=== PATIENT | female | born 1950 | race Hispanic/Latino ===

== ENCOUNTER → 2019-12-04 | Day surgery (SDC) | payer MEDICARE, OTHER ==
[2019-12-02 14:42] LABS: BASOPHILS % 0.5 % (0.0-1.0); EOSINOPHILS # (AUTO) 0.1 (0.0-0.4); EOSINOPHILS % 1.8 % (0.0-6.0); HEMATOCRIT 30.1 % (34.2-44.1); HEMOGLOBIN 10.1 g/dL (12.0-16.0); LYMPHOCYTES # (AUTO) 1.3 (1.0-3.2); LYMPHOCYTES % 24.1 % (18.0-39.1); MEAN CORPUSCULAR HEMOGLOBIN 32.7 pg (28-32); MEAN CORPUSCULAR HGB CONC 33.6 g/dL (31-35); MEAN CORPUSCULAR VOLUME 97.4 fL (81-99); MONOCYTES # (AUTO) 0.6 (0.2-0.8); NEUTROPHILS # (AUTO) 3.4 (2.1-6.9); NEUTROPHILS % 62.1 % (38.7-80.0); PLATELET COUNT 176 x10e3/uL (140-360); RED BLOOD COUNT 3.09 x10e6/uL (3.6-5.1); RED CELL DISTRIBUTION WIDTH 18.4 % (11.7-14.4)
[~2019-12-04] MED LIST: ACTOS15 MG PO; AMLODIPINE BESYL5 MG PO; FENTANYL CITRATE/PF 100MCG/2 ML INJ ONE; FOLIC ACID PO; FUROSEMIDE40 MG PO; HYOSCYAMINE 0.125 MG TAB ONE; METHOTREXATE2.5 MG PO; MIDAZOLAM HCL 2 MG/2 ML VIAL ONE; NORCO 10-325 T1 EACH PO; OMEPRAZOLE40 MG PO; PROPOFOL IV EMULSION 10 MG/ML 20 ML VIAL ONE; PROPOFOL IV EMULSION 10 MG/ML 50 ML VIAL ONE; TRAZODONE HCL50 MG PO
--- OUTSIDE RECORDS SUMMARY | 2019-12-04 07:21 | XMS REPORT ---
Author Author [facility] Address Unknown Phone Unavailable Care Team Providers Care Dye Worker Name Role Phone Unavailable Unavailable Payers Payer Name Policy Type Policy Number Effective Date Expiration Date Problems This patient has no known problems. Allergies, Adverse Reactions, Alerts Allergy Name Allergy Type Status Severity Reaction(s) Onset Date Inactive Date Treating Clinician Comments Penicillins DA Active [place] 2018-12-25 00:00:00 Penicillins DA Active [place] 2018-12-17 00:00:00 PCN DA Active [place] 2014-05-12 00:00:00 Medications This patient has no known medications. Encounters Start Date/Time End Date/Time Encounter Type Admission Type Attending Clinicians Care Facility Care Department Encounter ID 2019-03-26 17:31:34 Outpatient [id number] Results Test Description Test Time Test Comments Text Results Atomic Results Result Comments - XR KNEE 1 OR 2 V LT 2018-12-26 11:01:00 Patient Name: SANJEEV JOYNER Unit No: [id number] EXAMS: CPT CODE: [id number] XR KNEE 1 OR 2 V 94242 AP AND LATERAL VIEW OF THE LEFT KNEE COMMENT: Patient is status post total left knee arthroplasty. The prosthesis appears to be in good position. at 1101 Reported and signed by: Alan Bergman MD CC: Ti Cuevas Jr, MD; Popeye Chou MD Technologist: JHON MCKEON (RT.R) Tr anscribed D/ (1101) [email or web address] [facility] NAME: SANJEEV JOYNER [address] PHYS: Popeye Godinez MD : 1950 AGE: 68 SEX: F [place], [place] [address] LOC: Y.501 A PHONE #: [phone] EXAM DATE: 12/25/2018 STATUS: ADM IN FAX #: [phone] RAD #: D/C DT PAGE 1 Signed Report Patient Name: SANJEEV JOYNER Unit No: [id number] EXAMS: CPT CODE: [id number] XR KNEE 1 OR 2 V LT [address] <Continued> Orig Print D/T: S: 12/26/2018 (1104) [facility] NAME: SANJEEV JOYNER [address] [facility] [address] PHYS: Popeye Godinez MD : 1950 AGE: 68 SEX: F [place], [place] [address] LOC: Y.501 A PHONE #: [phone] EXAM DATE: 12/25/2018 STATUS: ADM IN FAX #: [phone] RAD #: D/C DT PAGE 2 Signed Report BASIC METABOLIC PANEL 2018-12-26 06:35:00 SODIUM (test code=NA) 137 mmol/L 136-145 POTASSIUM (test code=K) 4.7 mmol/L 3.5-5.1 CHLORIDE (test code=CL) 103.0 mmol/L 98-107 CARBON DIOXIDE (test code=CO2) 23.6 mmol/L 21-32 GLUCOSE (test code=GLU) 131 mg/dL 70-110 BLOOD UREA NITROGEN (test code=BUN) 46 mg/dL 7-18 VERIFIED BY REPEAT ANALYSIS.CRITICAL VALUE CALLED TO SOFIA GUTIERREZ/SRAVAN MAHAJANREAD BACK & CONFIRMED? YBY Y.LAB.MAV 12/26/18 0635 GLOMERULAR FILTRATION RATE (test code=GFR) 31.1 >60 Unit of measure: mL/min/1.73 [id number] Range:Healthy Adults >90 mL/min/1.73 m2 For Chronic Kidney Disease: Stage II Mild Decrease in GFR 60-90 Stage III Moderate Decrease in GFR 30-59 Stage IV Severe Decrease in GFR 15-29 Stage V Kidney Failure <15 CREATININE (test code=CREAT) 1.65 mg/dL 0.55-1.30 CALCIUM (test code=CA) 8.1 mg/dL 8.2-10.1 HGB [id number] 05:41:00* Test Item Value Reference Range Comments HEMOGLOBIN (test code=HGB) 9.6 g/dL 12-16 HEMATOCRIT (test code=HCT) 29.4 % 37-47 [id number] 05:23:00* Test Item Value Reference Range Comments GLUBED (test code=GLUBED) 122 mg/dL 60-125 [id number] 20:46:00* Test Item Value Reference Range Comments GLUBED (test code=GLUBED) 188 mg/dL 60-125 [id number] 16:35:00* Test Item Value Reference Range Comments GLUBED (test code=GLUBED) 153 mg/dL 60-125 [id number] 11:13:00* Test Item Value Reference Range Comments GLUBED (test code=GLUBED) 96 mg/dL 60-125 COMPREHENSIVE METABOLIC [id number] 11:26:00* Test Item Value Reference Range Comments SODIUM (test code=NA) 142 mmol/L 136-145 POTASSIUM (test code=K) 3.8 mmol/L 3.5-5.1 CHLORIDE (test code=CL) 104.0 mmol/L 98-107 CARBON DIOXIDE (test code=CO2) 28.7 mmol/L 21-32 GLUCOSE (test code=GLU) 125 mg/dL 70-110 BLOOD UREA NITROGEN (test code=BUN) 32 mg/dL 7-18 GLOMERULAR FILTRATION RATE (test code=GFR) 36.2 >60 Unit of measure: mL/min/1.73 [id number] Range:Healthy Adults >90 mL/min/1.73 m2 For Chronic Kidney Disease: Stage II Mild Decrease in GFR 60-90 Stage III Moderate Decrease in GFR 30-59 Stage IV Severe Decrease in GFR 15-29 Stage V Kidney Failure <15 CREATININE (test code=CREAT) 1.45 mg/dL 0.55-1.30 TOTAL PROTEIN (test code=PROT) 6.8 g/dL 6.4-8.2 ALBUMIN (test code=ALB) 3.2 g/dL 3.4-5.0 GLOBULIN (test code=GLOB) 3.6 g/dL 2.2-4.2 ALBUMIN/GLOBULIN RATIO (test code=A/G) 0.9 0.7-2.0 CALCIUM (test code=CA) 9.1 mg/dL 8.2-10.1 BILIRUBIN TOTAL (test code=BILT) 0.57 mg/dL 0.2-1.00 SGOT/AST (test code=AST) 33.0 U/L 15-37 SGPT/ALT (test code=ALT) 28.0 U/L 12-78 Please note new normal range. ALKALINE PHOSPHATASE TOTAL (test code=ALKP) 106 U/L 46-116 CBC W/AUTO [id number] 10:55:00* Test Item Value Reference Range Comments WHITE BLOOD CELL (test code=WBC) 4.7 K/mm3 5.8-11.0 RED BLOOD CELL (test code=RBC) 3.62 M/mm3 4.2-5.4 HEMOGLOBIN (test code=HGB) 11.2 g/dL 12-16 HEMATOCRIT (test code=HCT) 33.6 % 37-47 MEAN CELL VOLUME (test code=MCV) 93 fL 80-98 MEAN CELL HGB (test code=MCH) 30.9 pg 27-34 MEAN CELL HGB CONCENTRATION (test code=MCHC) 33.3 g/dL 30.8-34.1 RED CELL DISTRIBUTION WIDTH (test code=RDW) 13.6 % 11-16 PLT (test code=PLT) 169 K/mm3 130-400 MEAN PLATELET VOLUME (test code=MPV) 12.1 fL 8.9-12.1 NEUTROPHIL % (test code=NT%) 60.9 % 45-70 LYMPHOCYTE % (test code=LY%) 30.6 % 20-40 MONOCYTE % (test code=MO%) 4.0 % 3-10 EOSINOPHIL % (test code=EO%) 3.2 % 1-5 BASOPHIL % (test code=BA%) 0.9 % 0.0-1.1 NEUTROPHIL # (test code=NT#) 2.86 K/mm3 2.00-7.50 LYMPHOCYTE # (test code=LY#) 1.44 K/mm3 1.50-4.00 MONOCYTE # (test code=MO#) 0.19 K/mm3 0.2-0.8 EOSINOPHIL # (test code=EO#) 0.15 K/mm3 0.04-0.4 BASOPHIL # (test code=BA#) 0.04 K/mm3 0.02-0.10 MANUAL DIFF REQUIRED (test code=MDIFF) NO MANUAL DIFF NUCLEATED RED BLOOD CELL (test code=NRBC) 0 % 0-0
[2019-12-04 11:00] VITALS: BP 136/80
[2019-12-04 11:56] LABS: % IRON SATURATION 15 % (15-50); IRON 56 ug/dL (50-170); TOTAL IRON BINDING CAPACITY 381 ug/dL (261-478); TRANSFERRIN 272 mg/dL (180-382)
--- NOTE | 2019-12-04 19:29 | Operative Report ---
DATE OF PROCEDURE: 12/04/2019 SURGEON: Michael Hilton MD PROCEDURE: EGD with polypectomy and biopsies and colonoscopy with polypectomy. INDICATIONS FOR EGD: Upper abdominal pain. INDICATIONS FOR COLONOSCOPY: Surveillance colonoscopy, personal history of colon polyps. MEDICATIONS: The patient was done under MAC, please see anesthesiologist's note. PROCEDURE IN DETAIL: With the patient in left lateral decubitus position, the flexible fiberoptic Olympus gastroscope was introduced into the esophagus under direct visualization without any difficulty. There was some patchy erythema noted in distal esophagus. The scope was then advanced with ease into the stomach. Mucosa overlying the antrum and the body revealed some patchy erythema and [id number] edema and biopsies were obtained and sent to stain for H pylori. A single polyp was noted in the body of the stomach that was partially excised with the cold biopsy forceps. The pylorus was of normal contour and shape, was intubated with ease and the scope was advanced all the way to the second portion of the duodenum. The scope was then withdrawn slowly and biopsies were obtained from the proximal second portion and the duodenal bulb to rule out sprue. The scope was then withdrawn back into the stomach and retroflexed. Mucosa overlying the fundus and cardia appeared to be within normal limits. The scope was then straightened out, it was subsequently withdrawn. The patient tolerated procedure well. IMPRESSION: 1. Distal esophagitis. 2. Gastritis, biopsied. Biopsies sent to stain for H pylori. 3. Gastric polyp, body partially excised with the cold biopsy forceps. 4. Rule out sprue. PLAN: Follow up histology. Increase omeprazole to 40 mg one p.o. before meals b.i.d. The patient was then turned around. After adequate lubrication of the anal canal, a flexible fiberoptic Olympus colonoscope was inserted into the rectum with ease and advanced all the way to the cecum. It was then withdrawn slowly. Mucosa overlying the cecum, ascending colon, transverse colon, and descending colon appeared to be within normal limits. One polyp was snared from the sigmoid colon. Some diverticular disease was noted in the sigmoid colon. The rectum appeared to be within normal limits. The scope was then retroflexed into the distal rectum and small internal hemorrhoids were noted, none of which was actively bleeding. The scope was then straightened out, it was subsequently withdrawn. The patient tolerated the procedure well. IMPRESSION: 1. Sigmoid colon polyp, snared. 2. Diverticulosis. 3. Internal hemorrhoids, none actively bleeding. PLAN: Follow up histology. Initiate high-fiber, low-fat diet. Initiate high-fiber supplement. The patient might benefit from a followup colonoscopy in 5 years. MD ANGELICA James/MODL /[id number] cc: Vinod Cummings DO
== END | disposition home or self-care (01) ==
LOC: OR 07:14
PROVIDERS: ATTEND Internal Medicine Gastroenterology
DX: K29.80 Duodenitis without bleeding (principal); K31.7 Polyp of stomach and duodenum; K20.9 Esophagitis, unspecified; K29.50 Unspecified chronic gastritis without bleeding; D12.5 Benign neoplasm of sigmoid colon; K57.30 Diverticulosis of large intestine without perforation or abscess without bleeding; K64.8 Other hemorrhoids; Z09 Encounter for follow-up examination after completed treatment for conditions other than malignant neoplasm; I10 Essential (primary) hypertension; E11.9 Type 2 diabetes mellitus without complications; Z79.84 Long term (current) use of oral hypoglycemic drugs; Z01.812 Encounter for preprocedural laboratory examination
CPT/HCPCS: 36415 ×2; 43239; 45385; 82607; 82746; 82948; 83540; 84466; 85025; 85045; 88305; 88312; 93005; J2250; J2704 ×2; J3010; 45378

== ENCOUNTER 2021-06-28 08:31 | Emergency (ER) | payer MEDICARE, OTHER ==
[~2021-06-28] VITALS: Ht 149.9 cm; Wt 113.9 kg
[~2021-06-28 08:31] MED LIST changes: -FENTANYL CITRATE/PF 100MCG/2 ML INJ ONE; -HYOSCYAMINE 0.125 MG TAB ONE; -MIDAZOLAM HCL 2 MG/2 ML VIAL ONE; -PROPOFOL IV EMULSION 10 MG/ML 20 ML VIAL ONE; -PROPOFOL IV EMULSION 10 MG/ML 50 ML VIAL ONE
[2021-06-28] MEDS ORDERED: ONDANSETRON HCL INJ 2MG/ML 2ML 2 MG/ML VIAL IV STA (08:59)
[2021-06-28] MEDS ORDERED: SODIUM CHLORIDE 0.9% 1000ML 1,000 ML IV STA (09:04)
[2021-06-28] MEDS ORDERED: ONDANSETRON HCL INJ 2MG/ML 2ML 2 MG/ML VIAL ONE (09:05)
[2021-06-28] MEDS ORDERED: ONDANSETRON ODT4 MG PO (09:11)
[2021-06-28] MEDS ORDERED: FAMOTIDINE20 MG PO (09:11)
[2021-06-28] MEDS ORDERED: FAMOTIDINE 20 MG/2 ML VIAL IV ONE (09:15)
[2021-06-28] MEDS ORDERED: ONDANSETRON HCL INJ 2MG/ML 2ML 2 MG/ML VIAL IV ONE (09:15)
[2021-06-28] MEDS ORDERED: CEFTRIAXONE 1 GM VIAL IV ONE (10:30)
[2021-06-28] MEDS ORDERED: PROBIOTIC & AC1 EACH PO (10:30)
[2021-06-28] MEDS ORDERED: CEFDINIR300 MG PO (10:30)
[2021-06-28] MEDS ORDERED: CEFTRIAXONE 1 GM in SODIUM CHLORIDE 0.9% 50ML 50 ML IV ONE (10:45)
[2021-06-28] MEDS ORDERED: SODIUM CHLORIDE 0.9% 50ML 50 ML ONE (11:00)
[2021-06-28] MEDS ORDERED: CEFTRIAXONE 1 GM VIAL ONE (11:01)
== END 2021-06-28 12:00 | disposition home or self-care (01) ==
LOC: FSED 09:04
DX: R50.9 Fever, unspecified (principal); R11.2 Nausea with vomiting, unspecified; K52.9 Noninfective gastroenteritis and colitis, unspecified; N30.90 Cystitis, unspecified without hematuria; K76.0 Fatty (change of) liver, not elsewhere classified; I10 Essential (primary) hypertension; M06.9 Rheumatoid arthritis, unspecified
CPT/HCPCS: 74018; 80048; 80076; 85025; 96374; 96375; 96376; 99284; J0696; J2405; J7030

== ENCOUNTER 2021-06-30 18:38 | Inpatient (IN) | payer MEDICARE, OTHER ==
[~2021-06-30] VITALS: Ht 302.3 cm; Wt 126.1 kg
[~2021-06-30 18:38] MED LIST changes: +CEFDINIR300 MG PO; +FAMOTIDINE20 MG PO; +ONDANSETRON ODT4 MG PO; +PROBIOTIC & AC1 EACH PO
[2021-06-30] MEDS ORDERED: SODIUM CHLORIDE 0.9% 1000ML 1,000 ML IV STA (19:42)
[2021-06-30] MEDS ORDERED: ONDANSETRON HCL INJ 2MG/ML 2ML 2 MG/ML VIAL IV STA (19:42)
[2021-06-30] MEDS ORDERED: ONDANSETRON HCL INJ 2MG/ML 2ML 2 MG/ML VIAL ONE (20:23)
[2021-06-30] MEDS ORDERED: SODIUM CHLORIDE 0.9% 1000ML 1,000 ML ONE (20:24)
[2021-06-30] MEDS ORDERED: PHENERGAN SUPP25 MG RC (22:02)
[2021-06-30] MEDS ORDERED: DICYCLOMINE HCL20 MG PO (22:02)
[2021-06-30] MEDS ORDERED: ONDANSETRON HCL INJ 2MG/ML 2ML 2 MG/ML VIAL IV PRN (23:00)
[2021-06-30] MEDS ORDERED: SODIUM CHLORIDE 0.9% 1000ML 1,000 ML IV SCH (23:00)
[2021-07-01] VITALS (8 sets, daily range): BP systolic 85–118; BP diastolic 50–98
[2021-07-01] MEDS ORDERED: DEXTROSE 50% SYRINGE 50 ML IV PRN ×2 (04:00→08:30)
[2021-07-01] MEDS ORDERED: ATENOLOL-CHLOR1 EACH PO (04:48)
[2021-07-01 07:07] LABS: BASOPHILS % 0.4 % (0.0-1.0); EOSINOPHILS # (AUTO) 0.1 (0.0-0.4); EOSINOPHILS % 2.4 % (0.0-6.0); HEMATOCRIT 24.5 % (34.2-44.1); HEMOGLOBIN 8.2 g/dL (12.0-16.0); LYMPHOCYTES # (AUTO) 0.6 (1.0-3.2); LYMPHOCYTES % 12.1 % (18.0-39.1); MEAN CORPUSCULAR HEMOGLOBIN 33.3 pg (28-32); MEAN CORPUSCULAR HGB CONC 33.5 g/dL (31-35); MEAN CORPUSCULAR VOLUME 99.6 fL (81-99); MONOCYTES # (AUTO) 0.1 (0.2-0.8); MONOCYTES % 2.8 % (4.4-11.3); NEUTROPHILS # (AUTO) 4.1 (2.1-6.9); NEUTROPHILS % 81.9 % (38.7-80.0); PLATELET COUNT 144 x10e3/uL (140-360); RED BLOOD COUNT 2.46 x10e6/uL (3.6-5.1); RED CELL DISTRIBUTION WIDTH 15.8 % (11.7-14.4)
[2021-07-01 07:27] LABS: ALBUMIN/GLOBULIN RATIO 0.6 (0.8-2.0); CALCIUM 7.1 mg/dL (8.4-10.2); CREATININE, SERUM 3.22 mg/dL (0.57-1.11)
[2021-07-01] MEDS: INSULIN LISPRO 100 UNIT/1 ML 3ML VIAL SQ SCH ×4 (07:30→20:50)
[2021-07-01] MEDS ORDERED: ALBUTEROL/IPRATROPIUM 3 ML NEB NEB PRN (08:30)
[2021-07-01] MEDS ORDERED: SIMETHICONE 80 MG CHEW PO PRN (08:30)
[2021-07-01] MEDS ORDERED: POTASSIUM CHLORIDE 20 MEQ TAB CR PO PRN (08:30)
[2021-07-01] MEDS ORDERED: LIDOCAINE 4% PATCH TP PRN (08:30)
[2021-07-01] MEDS ORDERED: DOCUSATE SODIUM 100 MG CAP PO PRN (08:30)
[2021-07-01] MEDS ORDERED: ONDANSETRON HCL INJ 2MG/ML 2ML 2 MG/ML VIAL IV PRN (08:30)
[2021-07-01] MEDS ORDERED: DIPHENHYDRAMINE HCL 25 MG CAP PO PRN (08:30)
[2021-07-01] MEDS ORDERED: HYDRALAZINE HCL 20 MG/ML VIAL IV PRN (08:30)
[2021-07-01] MEDS ORDERED: POTASSIUM CHLORIDE 10MEQ EA PO SCH ×2 (09:00)
[2021-07-01] MEDS ORDERED: POTASSIUM CHLORIDE 20 MEQ TAB CR PO ONE (09:10)
[2021-07-01] MEDS ORDERED: SODIUM CHLORIDE 0.9% 500ML 500 ML IV SCH (09:15)
[2021-07-01] MEDS: MIDODRINE HCL 5 MG TABLET PO SCH ×3 (10:23→16:49)
[2021-07-01] MEDS: PANTOPRAZOLE SOD 40 MG TABEC PO SCH (10:27)
[2021-07-01] MEDS ORDERED: MIDODRINE 2.5 MG TAB PO SCH (12:00)
[2021-07-01] MEDS: HYDROCODONE/APAP 5MG-325MG TAB PO PRN ×2 (12:27→18:18)
[2021-07-01] MEDS ORDERED: SODIUM CHLORIDE 0.9% 1000ML 1,000 ML ONE (12:29)
[2021-07-01] MEDS: METRONIDAZOLE 500MG/NS 100ML 100 ML IV SCH ×2 (13:39→22:32)
[2021-07-01] MEDS: METOCLOPRAMIDE HCL 10 MG/2ML VIAL IV SCH ×2 (13:39→16:49)
[2021-07-01] MEDS ORDERED: LIDOCAINE HCL 1% LOCAL INJ 20 ML VIAL ONE (13:40)
[2021-07-01] MEDS ORDERED: SODIUM CHLORIDE 3% 200 ML IV ONE (16:00)
[2021-07-01] MEDS: SODIUM CHLORIDE 1 GM TAB PO SCH ×2 (16:49→20:51)
[2021-07-01] MEDS ORDERED: CHLORASEPTIC SPRAY 177 ML BTL MM PRN (19:15)
[2021-07-01] MEDS ORDERED: SODIUM CHLORIDE 3% 150 ML IV ONE (20:30)
[2021-07-02] VITALS (13 sets, daily range): BP systolic 73–137; BP diastolic 42–79
[2021-07-02] MEDS: METOCLOPRAMIDE HCL 10 MG/2ML VIAL IV SCH ×4 (00:34→17:13)
[2021-07-02] MEDS: METRONIDAZOLE 500MG/NS 100ML 100 ML IV SCH ×3 (05:37→22:16)
[2021-07-02 06:42] LABS: ANION GAP 12.6 mmol/L (8-16); CREATININE, SERUM 3.72 mg/dL (0.57-1.11); MAGNESIUM 1.4 MG/DL (1.3-2.1); PHOSPHORUS 4.2 MG/DL (2.3-4.7); POTASSIUM 3.6 mmol/L (3.5-5.1)
[2021-07-02 06:44] LABS: CALCIUM 6.7 mg/dL (8.4-10.2)
[2021-07-02 06:55] LABS: BASOPHILS % 0.3 % (0.0-1.0); EOSINOPHILS % 0.3 % (0.0-6.0); LYMPHOCYTES # (AUTO) 0.7 (1.0-3.2); LYMPHOCYTES % 6.9 % (18.0-39.1); MEAN CORPUSCULAR HEMOGLOBIN 33.9 pg (28-32); MEAN CORPUSCULAR HGB CONC 34.5 g/dL (31-35); MEAN CORPUSCULAR VOLUME 98.2 fL (81-99); MONOCYTES # (AUTO) 0.3 (0.2-0.8); MONOCYTES % 3.4 % (4.4-11.3); NEUTROPHILS # (AUTO) 8.3 (2.1-6.9); NEUTROPHILS % 87.7 % (38.7-80.0); RED BLOOD COUNT 2.24 x10e6/uL (3.6-5.1); RED CELL DISTRIBUTION WIDTH 15.6 % (11.7-14.4)
[2021-07-02 06:59] LABS: HEMOGLOBIN 7.6 g/dL (12.0-16.0); PLATELET COUNT 109 x10e3/uL (140-360)
[2021-07-02] MEDS: INSULIN LISPRO 100 UNIT/1 ML 3ML VIAL SQ SCH ×4 (07:30→21:00)
[2021-07-02 07:43] LABS: LYMPHOCYTES % (MANUAL) 2 % (19-48); MONOCYTES % (MANUAL) 1 % (3.4-9.0); NEUTROPHILS % (MANUAL) 97 % (40-74)
[2021-07-02 07:44] LABS: PLATELET ESTIMATE SLIGHTLY DECREASED; PLATELET MORPHOLOGY COMMENT NORMAL; RBC MORPHOLOGY COMMENT NORMAL
[2021-07-02] MEDS: SODIUM CHLORIDE 1 GM TAB PO SCH ×3 (08:37→21:03)
[2021-07-02] MEDS: MIDODRINE HCL 5 MG TABLET PO SCH ×4 (08:37→17:13)
[2021-07-02] MEDS: PANTOPRAZOLE SOD 40 MG TABEC PO SCH (08:37)
[2021-07-02] MEDS: ACETAMINOPHEN 325 MG TAB PO PRN (08:38)
[2021-07-02] MEDS ORDERED: ALBUMIN 25% 25GM 100ML 0.25 GM/ML BTL IV ONE (11:28)
[2021-07-02] MEDS ORDERED: CALCIUM GLUCONATE 10% INJ 4.65 MEQ in SODIUM CHLORIDE 0.9% 50ML 50 ML IV ONE ×2 (15:47→17:30)
[2021-07-02] MEDS ORDERED: SODIUM CHLORIDE 0.9% 1000ML 1,000 ML IV ONE (16:45)
[2021-07-02] MEDS ORDERED: MAGNESIUM SULFATE 2GM/50ML 50 ML IV ONE (16:45)
[2021-07-02] MEDS ORDERED: FUROSEMIDE INJ 10 MG/ML 2 ML VIAL IV ONE (16:45)
[2021-07-02] MEDS: CALCIUM CARBONATE 500 MG CHEWABLE TABS PO SCH (21:03)
[2021-07-02] MEDS ORDERED: FUROSEMIDE INJ 10 MG/ML 2 ML VIAL ONE (22:09)
[2021-07-03] VITALS (11 sets, daily range): BP systolic 78–121; BP diastolic 43–84
[2021-07-03] MEDS: METOCLOPRAMIDE HCL 10 MG/2ML VIAL IV SCH ×4 (00:16→17:25)
[2021-07-03] MEDS: MIDODRINE HCL 5 MG TABLET PO SCH ×4 (00:16→17:25)
[2021-07-03] MEDS ORDERED: METOCLOPRAMIDE HCL 10 MG/2ML VIAL IV STA (02:49)
[2021-07-03 05:55] LABS: BASOPHILS # (AUTO) 0.1 (0.0-0.1); BASOPHILS % 0.5 % (0.0-1.0); EOSINOPHILS # (AUTO) 0.1 (0.0-0.4); EOSINOPHILS % 0.8 % (0.0-6.0); HEMOGLOBIN 7.1 g/dL (12.0-16.0); LYMPHOCYTES # (AUTO) 0.7 (1.0-3.2); LYMPHOCYTES % 7.2 % (18.0-39.1); MEAN CORPUSCULAR HEMOGLOBIN 34.1 pg (28-32); MEAN CORPUSCULAR VOLUME 97.6 fL (81-99); MONOCYTES # (AUTO) 0.2 (0.2-0.8); MONOCYTES % 2.2 % (4.4-11.3); NEUTROPHILS # (AUTO) 8.7 (2.1-6.9); NEUTROPHILS % 87.7 % (38.7-80.0); PLATELET COUNT 80 x10e3/uL (140-360); RED BLOOD COUNT 2.08 x10e6/uL (3.6-5.1); RED CELL DISTRIBUTION WIDTH 15.9 % (11.7-14.4)
[2021-07-03] MEDS: METRONIDAZOLE 500MG/NS 100ML 100 ML IV SCH ×3 (06:00→21:42)
[2021-07-03 06:09] LABS: HEMATOCRIT 20.3 % (34.2-44.1)
[2021-07-03 06:18] LABS: ANION GAP 13.7 mmol/L (8-16); CALCIUM 7.3 mg/dL (8.4-10.2); CREATININE, SERUM 3.82 mg/dL (0.57-1.11); POTASSIUM 3.7 mmol/L (3.5-5.1)
[2021-07-03 06:33] LABS: % IRON SATURATION 92 % (15-50); IRON 149 ug/dL (50-170); TOTAL IRON BINDING CAPACITY 162 ug/dL (261-478); TRANSFERRIN 116 mg/dL (180-382)
[2021-07-03] MEDS: INSULIN LISPRO 100 UNIT/1 ML 3ML VIAL SQ SCH ×4 (07:30→21:43)
[2021-07-03 08:52] LABS: EOSINOPHILS % (MANUAL) 2 % (0-7); LYMPHOCYTES % (MANUAL) 6 % (19-48); MONOCYTES % (MANUAL) 1 % (3.4-9.0); NEUTROPHILS % (MANUAL) 91 % (40-74)
[2021-07-03 08:54] LABS: PLATELET MORPHOLOGY COMMENT NORMAL
[2021-07-03 08:55] LABS: ANISOCYTOSIS SLIGHT; PLATELET ESTIMATE MODERATELY DECREASED; RBC MORPHOLOGY COMMENT ABNORMAL
[2021-07-03 08:56] LABS: HYPOCHROMASIA MODERATE
[2021-07-03] MEDS: SODIUM CHLORIDE 1 GM TAB PO SCH ×3 (09:25→21:42)
[2021-07-03] MEDS: CALCIUM CARBONATE 500 MG CHEWABLE TABS PO SCH ×3 (09:25→21:42)
[2021-07-03 09:27] LABS: CLARITY,URINE CLEAR (CLEAR); COLOR,URINE YELLOW (YELLOW); KETONES,URINE NEGATIVE (NEGATIVE); LEUKOCYTE ESTERASE ,URINE MODERATE (NEGATIVE); NITRITE,URINE NEGATIVE (NEGATIVE); PROTEIN,URINE DIPSTICK NEGATIVE (NEGATIVE); URINE UROBILINOGEN 0.2 mg/dL (0.2 - 1)
[2021-07-03 09:48] LABS: BACTERIA,URINE FEW /HPF; TRANSITIONAL EPI CELLS,URINE MODERATE; WBC,URINE (MAN) 21-50 /HPF (0-5)
[2021-07-03 09:50] LABS: EPITHELIAL CELLS,URINE FEW /LPF
[2021-07-03 09:51] LABS: YEAST,URINE RARE
[2021-07-03 09:52] LABS: RBC,URINE 0-5 /HPF (0-5)
[2021-07-03] MEDS: HYDROCODONE/APAP 5MG-325MG TAB PO PRN (10:50)
[2021-07-03 14:39] LABS: ANION GAP 12.6 mmol/L (8-16); CALCIUM 7.4 mg/dL (8.4-10.2); CREATININE, SERUM 3.99 mg/dL (0.57-1.11); POTASSIUM 3.6 mmol/L (3.5-5.1)
[2021-07-03] MEDS: NOREPINEPHRINE 8 MG/D5W 250 ML 250 ML IV SCH (15:00)
[2021-07-03] MEDS ORDERED: TOLVAPTAN 30 MG TAB PO ONE (16:00)
[2021-07-03] MEDS ORDERED: SODIUM CHLORIDE 0.9% 250ML 250 ML ONE (18:37)
[2021-07-03] MEDS: SODIUM CHLORIDE 0.9% 250ML 250 ML IV ONE ×2 (18:40→18:48)
[2021-07-03] MEDS: FUROSEMIDE INJ 10 MG/ML 4 ML VIAL IV ONE ×2 (18:48→21:42)
[2021-07-03] MEDS ORDERED: FUROSEMIDE INJ 10 MG/ML 4 ML VIAL ONE (21:51)
[2021-07-03 23:06] LABS: ANION GAP 13.6 mmol/L (8-16); CALCIUM 7.7 mg/dL (8.4-10.2); CREATININE, SERUM 4.08 mg/dL (0.57-1.11); POTASSIUM 3.6 mmol/L (3.5-5.1)
[2021-07-04] VITALS (24 sets, daily range): BP systolic 77–132; BP diastolic 47–92
[2021-07-04] MEDS: METOCLOPRAMIDE HCL 10 MG/2ML VIAL IV SCH ×4 (00:56→18:15)
[2021-07-04] MEDS: METRONIDAZOLE 500MG/NS 100ML 100 ML IV SCH ×3 (05:47→21:12)
[2021-07-04] MEDS: MIDODRINE HCL 5 MG TABLET PO SCH ×4 (06:00→18:00)
[2021-07-04 06:40] LABS: BASOPHILS % 0.4 % (0.0-1.0); EOSINOPHILS # (AUTO) 0.1 (0.0-0.4); EOSINOPHILS % 1.5 % (0.0-6.0); HEMOGLOBIN 8.1 g/dL (12.0-16.0); LYMPHOCYTES # (AUTO) 0.7 (1.0-3.2); LYMPHOCYTES % 9.8 % (18.0-39.1); MEAN CORPUSCULAR HEMOGLOBIN 34.2 pg (28-32); MEAN CORPUSCULAR VOLUME 94.9 fL (81-99); MONOCYTES # (AUTO) 0.3 (0.2-0.8); MONOCYTES % 4.4 % (4.4-11.3); NEUTROPHILS # (AUTO) 6.3 (2.1-6.9); NEUTROPHILS % 82.8 % (38.7-80.0); RED BLOOD COUNT 2.37 x10e6/uL (3.6-5.1); RED CELL DISTRIBUTION WIDTH 16.3 % (11.7-14.4)
[2021-07-04 06:57] LABS: ANION GAP 13.5 mmol/L (8-16); CALCIUM 7.5 mg/dL (8.4-10.2); CREATININE, SERUM 3.99 mg/dL (0.57-1.11); POTASSIUM 3.5 mmol/L (3.5-5.1)
[2021-07-04 07:09] LABS: MAGNESIUM 1.8 MG/DL (1.3-2.1); PHOSPHORUS 5.1 MG/DL (2.3-4.7)
[2021-07-04 07:19] LABS: HEMATOCRIT 22.5 % (34.2-44.1); PLATELET COUNT 56 x10e3/uL (140-360)
[2021-07-04] MEDS: INSULIN LISPRO 100 UNIT/1 ML 3ML VIAL SQ SCH ×4 (07:30→21:25)
[2021-07-04] MEDS: CALCIUM CARBONATE 500 MG CHEWABLE TABS PO SCH ×3 (09:58→21:11)
[2021-07-04] MEDS: SODIUM CHLORIDE 1 GM TAB PO SCH ×3 (09:58→21:11)
[2021-07-04] MEDS ORDERED: FUROSEMIDE INJ 10 MG/ML 4 ML VIAL IV ONE (11:00)
[2021-07-04 12:10] LABS: EOSINOPHILS % (MANUAL) 1 % (0-7); HYPERSEGMENTED NEUTROPHILS FEW; LYMPHOCYTES % (MANUAL) 9 % (19-48); MONOCYTES % (MANUAL) 4 % (3.4-9.0); NEUTROPHILS % (MANUAL) 85 % (40-74)
[2021-07-04 12:12] LABS: PLATELET ESTIMATE MODERATELY DECREASED; PLATELET MORPHOLOGY COMMENT NORMAL
[2021-07-04 12:13] LABS: ANISOCYTOSIS SLIGHT; RBC MORPHOLOGY COMMENT NORMAL
[2021-07-04] MEDS: NOREPINEPHRINE 8 MG/D5W 250 ML 250 ML IV SCH (15:00)
[2021-07-05] VITALS (23 sets, daily range): BP systolic 95–131; BP diastolic 53–78
[2021-07-05] MEDS: METOCLOPRAMIDE HCL 10 MG/2ML VIAL IV SCH ×5 (00:50→23:34)
[2021-07-05] MEDS: MIDODRINE HCL 5 MG TABLET PO SCH ×2 (00:50→08:10)
[2021-07-05] MEDS: ACETAMINOPHEN 325 MG TAB PO PRN (01:01)
[2021-07-05 03:07] LABS: CLARITY,URINE CLOUDY (CLEAR); COLOR,URINE YELLOW (YELLOW); LEUKOCYTE ESTERASE ,URINE TRACE (NEGATIVE)
[2021-07-05 03:08] LABS: BACTERIA,URINE MODERATE /HPF; EPITHELIAL CELLS,URINE FEW /LPF; KETONES,URINE NEGATIVE (NEGATIVE); NITRITE,URINE NEGATIVE (NEGATIVE); PROTEIN,URINE DIPSTICK NEGATIVE (NEGATIVE); RBC,URINE >50 /HPF (0-5); URINE UROBILINOGEN 0.2 mg/dL (0.2 - 1); YEAST,URINE MODERATE
[2021-07-05 05:23] LABS: BASOPHILS % 0.5 % (0.0-1.0); EOSINOPHILS # (AUTO) 0.1 (0.0-0.4); EOSINOPHILS % 2.1 % (0.0-6.0); HEMOGLOBIN 7.5 g/dL (12.0-16.0); MEAN CORPUSCULAR HEMOGLOBIN 33.2 pg (28-32); MEAN CORPUSCULAR HGB CONC 35.7 g/dL (31-35); MEAN CORPUSCULAR VOLUME 92.9 fL (81-99); MONOCYTES # (AUTO) 0.3 (0.2-0.8); MONOCYTES % 4.1 % (4.4-11.3); NEUTROPHILS # (AUTO) 4.8 (2.1-6.9); NEUTROPHILS % 76.4 % (38.7-80.0); RED BLOOD COUNT 2.26 x10e6/uL (3.6-5.1); RED CELL DISTRIBUTION WIDTH 16.1 % (11.7-14.4)
[2021-07-05 05:45] LABS: ANION GAP 13.3 mmol/L (8-16); CALCIUM 7.8 mg/dL (8.4-10.2); CREATININE, SERUM 3.73 mg/dL (0.57-1.11); POTASSIUM 3.3 mmol/L (3.5-5.1)
[2021-07-05 06:09] LABS: % IRON SATURATION 96 % (15-50); IRON 138 ug/dL (50-170); TOTAL IRON BINDING CAPACITY 144 ug/dL (261-478); TRANSFERRIN 103 mg/dL (180-382)
[2021-07-05 06:50] LABS: PLATELET COUNT 41 x10e3/uL (140-360)
[2021-07-05] MEDS: METRONIDAZOLE 500MG/NS 100ML 100 ML IV SCH ×3 (06:51→22:21)
[2021-07-05] MEDS: SODIUM CHLORIDE 1 GM TAB PO SCH ×3 (08:11→20:35)
[2021-07-05] MEDS: CALCIUM CARBONATE 500 MG CHEWABLE TABS PO SCH ×3 (08:11→20:35)
[2021-07-05] MEDS: INSULIN LISPRO 100 UNIT/1 ML 3ML VIAL SQ SCH ×4 (08:11→20:36)
[2021-07-05 08:39] LABS: EOSINOPHILS % (MANUAL) 3 % (0-7); LYMPHOCYTES % (MANUAL) 11 % (19-48); MONOCYTES % (MANUAL) 4 % (3.4-9.0); NEUTROPHILS % (MANUAL) 82 % (40-74); PLATELET ESTIMATE MARKEDLY DECREASED; PLATELET MORPHOLOGY COMMENT FEW LARGE; RBC MORPHOLOGY COMMENT NORMAL
[2021-07-05] MEDS ORDERED: POTASSIUM CHLORIDE 20 MEQ TAB CR PO STA (12:07)
[2021-07-05 13:03] LABS: INR 1.57; PROTHROMBIN TIME 19.1 seconds (11.9-14.5)
[2021-07-05 13:04] LABS: PARTIAL THROMBOPLASTIN TIME 48.3 seconds (23.8-35.5)
[2021-07-05] MEDS: NOREPINEPHRINE 8 MG/D5W 250 ML 250 ML IV SCH (15:00)
[2021-07-06] VITALS (16 sets, daily range): BP systolic 102–136; BP diastolic 50–86
[2021-07-06] MEDS: METOCLOPRAMIDE HCL 10 MG/2ML VIAL IV SCH ×3 (05:33→17:10)
[2021-07-06] MEDS: METRONIDAZOLE 500MG/NS 100ML 100 ML IV SCH ×3 (05:33→22:14)
[2021-07-06 06:30] LABS: ANION GAP 11.3 mmol/L (8-16); CALCIUM 7.9 mg/dL (8.4-10.2); CREATININE, SERUM 3.17 mg/dL (0.57-1.11); POTASSIUM 3.3 mmol/L (3.5-5.1)
[2021-07-06 07:18] LABS: BASOPHILS % 0.4 % (0.0-1.0); EOSINOPHILS # (AUTO) 0.1 (0.0-0.4); EOSINOPHILS % 2.5 % (0.0-6.0); HEMOGLOBIN 7.4 g/dL (12.0-16.0); LYMPHOCYTES # (AUTO) 1.1 (1.0-3.2); LYMPHOCYTES % 22.1 % (18.0-39.1); MEAN CORPUSCULAR HEMOGLOBIN 33.6 pg (28-32); MEAN CORPUSCULAR HGB CONC 34.9 g/dL (31-35); MEAN CORPUSCULAR VOLUME 96.4 fL (81-99); MONOCYTES # (AUTO) 0.3 (0.2-0.8); MONOCYTES % 5.3 % (4.4-11.3); NEUTROPHILS # (AUTO) 3.3 (2.1-6.9); NEUTROPHILS % 69.3 % (38.7-80.0); RED CELL DISTRIBUTION WIDTH 16.4 % (11.7-14.4)
[2021-07-06 07:28] LABS: PLATELET COUNT 29 x10e3/uL (140-360)
[2021-07-06 07:29] LABS: HEMATOCRIT 21.2 % (34.2-44.1)
[2021-07-06] MEDS: INSULIN LISPRO 100 UNIT/1 ML 3ML VIAL SQ SCH ×4 (07:30→21:15)
[2021-07-06] MEDS: SODIUM CHLORIDE 1 GM TAB PO SCH (08:57)
[2021-07-06] MEDS: FOLIC ACID 1 MG TAB PO SCH (08:57)
[2021-07-06] MEDS: CALCIUM CARBONATE 500 MG CHEWABLE TABS PO SCH ×3 (08:57→20:25)
[2021-07-06] MEDS ORDERED: POTASSIUM CHLORIDE 20 MEQ TAB CR PO ONE (11:35)
[2021-07-06 12:15] LABS: EOSINOPHILS % (MANUAL) 2 % (0-7); LYMPHOCYTES % (MANUAL) 20 % (19-48); MONOCYTES % (MANUAL) 2 % (3.4-9.0); NEUTROPHILS % (MANUAL) 76 % (40-74); PLATELET ESTIMATE MODERATELY DECREASED
[2021-07-06 12:16] LABS: PLATELET MORPHOLOGY COMMENT NORMAL; RBC MORPHOLOGY COMMENT NORMAL
[2021-07-06] MEDS: CEFTRIAXONE 1 GM in SODIUM CHLORIDE 0.9% 50ML 50 ML IV SCH (12:38)
[2021-07-06] MEDS: FLUCONAZOLE 100 MG/NS 50 ML 50 ML IV SCH (14:16)
[2021-07-06] MEDS: NOREPINEPHRINE 8 MG/D5W 250 ML 250 ML IV SCH (14:23)
[2021-07-06] MEDS ORDERED: SODIUM CHLORIDE 1 GM TAB PO SCH (21:00)
[2021-07-07] VITALS (9 sets, daily range): BP systolic 100–134; BP diastolic 52–82
[2021-07-07] MEDS: METOCLOPRAMIDE HCL 10 MG/2ML VIAL IV SCH ×5 (00:15→23:01)
[2021-07-07] MEDS: METRONIDAZOLE 500MG/NS 100ML 100 ML IV SCH ×3 (05:29→22:21)
[2021-07-07 06:04] LABS: BASOPHILS % 0.2 % (0.0-1.0); EOSINOPHILS # (AUTO) 0.2 (0.0-0.4); EOSINOPHILS % 3.9 % (0.0-6.0); HEMOGLOBIN 7.3 g/dL (12.0-16.0); LYMPHOCYTES % 24.1 % (18.0-39.1); MEAN CORPUSCULAR HEMOGLOBIN 34.3 pg (28-32); MEAN CORPUSCULAR HGB CONC 36.1 g/dL (31-35); MEAN CORPUSCULAR VOLUME 94.8 fL (81-99); MONOCYTES # (AUTO) 0.6 (0.2-0.8); MONOCYTES % 14.1 % (4.4-11.3); NEUTROPHILS # (AUTO) 2.3 (2.1-6.9); RED BLOOD COUNT 2.13 x10e6/uL (3.6-5.1); RED CELL DISTRIBUTION WIDTH 16.3 % (11.7-14.4)
[2021-07-07 06:22] LABS: PLATELET COUNT 19 x10e3/uL (140-360)
[2021-07-07 06:23] LABS: HEMATOCRIT 20.2 % (34.2-44.1)
[2021-07-07 06:29] LABS: ALBUMIN 1.9 g/dL (3.5-5.0); ALBUMIN/GLOBULIN RATIO 0.6 (0.8-2.0); ANION GAP 12.5 mmol/L (8-16); CALCIUM 8.1 mg/dL (8.4-10.2); CREATININE, SERUM 2.57 mg/dL (0.57-1.11); MAGNESIUM 1.5 MG/DL (1.3-2.1); PHOSPHORUS 2.9 MG/DL (2.3-4.7); POTASSIUM 3.5 mmol/L (3.5-5.1)
[2021-07-07] MEDS: INSULIN LISPRO 100 UNIT/1 ML 3ML VIAL SQ SCH ×4 (07:30→21:49)
[2021-07-07 07:44] LABS: CLARITY,URINE CLOUDY (CLEAR); COLOR,URINE YELLOW (YELLOW); KETONES,URINE NEGATIVE (NEGATIVE); LEUKOCYTE ESTERASE ,URINE SMALL (NEGATIVE); NITRITE,URINE POSITIVE (NEGATIVE); PROTEIN,URINE DIPSTICK NEGATIVE (NEGATIVE); URINE UROBILINOGEN 0.2 mg/dL (0.2 - 1)
[2021-07-07 07:54] LABS: CREATININE,URINE RANDOM 95.65 mg/dL (47-110)
[2021-07-07 07:55] LABS: BACTERIA,URINE MODERATE /HPF; RBC,URINE >50 /HPF (0-5); WBC,URINE (MAN) 21-50 /HPF (0-5)
[2021-07-07 07:56] LABS: EPITHELIAL CELLS,URINE FEW /LPF; YEAST,URINE MANY
[2021-07-07 08:01] LABS: SODIUM,URINE < 20 mmol/L
[2021-07-07 08:57] LABS: EOSINOPHILS % (MANUAL) 3 % (0-7); LYMPHOCYTES % (MANUAL) 16 % (19-48); MONOCYTES % (MANUAL) 9 % (3.4-9.0); NEUTROPHILS % (MANUAL) 72 % (40-74)
[2021-07-07 08:58] LABS: PLATELET ESTIMATE MARKEDLY DECREASED
[2021-07-07 08:59] LABS: PLATELET MORPHOLOGY COMMENT NORMAL; RBC MORPHOLOGY COMMENT NORMAL
[2021-07-07] MEDS ORDERED: DEXAMETHASONE SOD PHOS 10 MG/1 ML VIAL IV ONE (09:00)
[2021-07-07] MEDS: SODIUM CHLORIDE 1 GM TAB PO SCH ×2 (09:53→17:11)
[2021-07-07] MEDS: CALCIUM CARBONATE 500 MG CHEWABLE TABS PO SCH ×3 (09:53→20:28)
[2021-07-07] MEDS: CEFTRIAXONE 1 GM in SODIUM CHLORIDE 0.9% 50ML 50 ML IV SCH (09:53)
[2021-07-07] MEDS: FOLIC ACID 1 MG TAB PO SCH (09:53)
[2021-07-07] MEDS ORDERED: ONDANSETRON HCL 4 MG ORAL DISINTEGRATING TAB PO PRN (10:30)
[2021-07-07] MEDS: EPOETIN ALFA-EPBX 10,000 UNIT/ML VIAL SC SCH (11:06)
[2021-07-07] MEDS ORDERED: SODIUM CHLORIDE 0.9% 50ML 50 ML ONE (13:17)
[2021-07-07] MEDS: FLUCONAZOLE 100 MG/NS 50 ML 50 ML IV SCH (13:17)
[2021-07-07] MEDS: NOREPINEPHRINE 8 MG/D5W 250 ML 250 ML IV SCH (15:00)
[2021-07-07] MEDS ORDERED: SODIUM CHLORIDE 0.9% 250ML 250 ML ONE (17:57)
[2021-07-07 20:02] LABS: HEMOGLOBIN 7.4 g/dL (12.0-16.0); LYMPHOCYTES # (AUTO) 0.4 (1.0-3.2); LYMPHOCYTES % 14.3 % (18.0-39.1); MEAN CORPUSCULAR HEMOGLOBIN 33.3 pg (28-32); MEAN CORPUSCULAR HGB CONC 34.7 g/dL (31-35); MEAN CORPUSCULAR VOLUME 95.9 fL (81-99); MONOCYTES # (AUTO) 0.1 (0.2-0.8); MONOCYTES % 5.1 % (4.4-11.3); NEUTROPHILS # (AUTO) 2.2 (2.1-6.9); NEUTROPHILS % 79.5 % (38.7-80.0); RED BLOOD COUNT 2.22 x10e6/uL (3.6-5.1); RED CELL DISTRIBUTION WIDTH 16.4 % (11.7-14.4)
[2021-07-07 20:33] LABS: HEMATOCRIT 21.3 % (34.2-44.1); PLATELET COUNT 51 x10e3/uL (140-360)
[2021-07-07] MEDS: HYDROCODONE/APAP 5MG-325MG TAB PO PRN (23:01)
[2021-07-08] VITALS (7 sets, daily range): BP systolic 115–134; BP diastolic 60–77
[2021-07-08] MEDS: METRONIDAZOLE 500MG/NS 100ML 100 ML IV SCH ×3 (05:08→21:01)
[2021-07-08] MEDS: METOCLOPRAMIDE HCL 10 MG/2ML VIAL IV SCH ×3 (05:08→17:28)
[2021-07-08 06:42] LABS: BASOPHILS % 0.2 % (0.0-1.0); HEMOGLOBIN 7.3 g/dL (12.0-16.0); LYMPHOCYTES # (AUTO) 0.9 (1.0-3.2); LYMPHOCYTES % 22.6 % (18.0-39.1); MEAN CORPUSCULAR HEMOGLOBIN 33.5 pg (28-32); MEAN CORPUSCULAR HGB CONC 34.8 g/dL (31-35); MEAN CORPUSCULAR VOLUME 96.3 fL (81-99); MONOCYTES # (AUTO) 0.3 (0.2-0.8); MONOCYTES % 6.1 % (4.4-11.3); NEUTROPHILS # (AUTO) 2.9 (2.1-6.9); NEUTROPHILS % 70.4 % (38.7-80.0); RED BLOOD COUNT 2.18 x10e6/uL (3.6-5.1); RED CELL DISTRIBUTION WIDTH 16.2 % (11.7-14.4)
[2021-07-08] MEDS: ONDANSETRON HCL 4 MG ORAL DISINTEGRATING TAB PO PRN (06:42)
[2021-07-08 07:01] LABS: PLATELET COUNT 42 x10e3/uL (140-360)
[2021-07-08 07:02] LABS: ANION GAP 12.7 mmol/L (8-16); CALCIUM 8.3 mg/dL (8.4-10.2); CREATININE, SERUM 2.07 mg/dL (0.57-1.11); MAGNESIUM 1.4 MG/DL (1.3-2.1); PHOSPHORUS 2.2 MG/DL (2.3-4.7); POTASSIUM 3.7 mmol/L (3.5-5.1)
[2021-07-08] MEDS: INSULIN LISPRO 100 UNIT/1 ML 3ML VIAL SQ SCH ×4 (07:57→21:00)
[2021-07-08] MEDS: CEFTRIAXONE 1 GM in SODIUM CHLORIDE 0.9% 50ML 50 ML IV SCH (08:48)
[2021-07-08] MEDS: FOLIC ACID 1 MG TAB PO SCH (08:55)
[2021-07-08] MEDS: SODIUM CHLORIDE 1 GM TAB PO SCH (08:55)
[2021-07-08] MEDS: CALCIUM CARBONATE 500 MG CHEWABLE TABS PO SCH ×3 (08:55→20:05)
[2021-07-08] MEDS ORDERED: DEXAMETHASONE SOD PHOS 10 MG/1 ML VIAL IV ONE (09:45)
[2021-07-08] MEDS ORDERED: DEXAMETHASONE PHOS 10MG INJ 20 MG in SODIUM CHLORIDE 0.9% 50ML 50 ML IV ONE (11:00)
[2021-07-08] MEDS ORDERED: SODIUM PHOSPHATE IN 0.9 % NACL 15 MMOL in SODIUM CHLORIDE 0.9% 250ML 250 ML IV ONE ×2 (12:00)
[2021-07-08 13:25] LABS: OSMOLALITY,SERUM OSMOMETER 296 mOsmol/kg (280-301)
[2021-07-08] MEDS: FLUCONAZOLE 100 MG/NS 50 ML 50 ML IV SCH (14:00)
[2021-07-08] MEDS: NOREPINEPHRINE 8 MG/D5W 250 ML 250 ML IV SCH (15:00)
[2021-07-08] MEDS: ACETAMINOPHEN 325 MG TAB PO PRN (16:28)
[2021-07-08] MEDS ORDERED: HYDROCODONE/APAP 5MG-325MG TAB PO PRN (19:15)
[2021-07-08] MEDS ORDERED: SODIUM CHLORIDE 0.9% 250ML 250 ML ONE (19:50)
[2021-07-09] VITALS (7 sets, daily range): BP systolic 113–139; BP diastolic 57–80
[2021-07-09] MEDS: METOCLOPRAMIDE HCL 10 MG/2ML VIAL IV SCH ×4 (00:10→17:24)
[2021-07-09] MEDS: FUROSEMIDE INJ 10 MG/ML 4 ML VIAL IV SCH ×3 (00:10→14:00)
[2021-07-09] MEDS: ONDANSETRON HCL 4 MG ORAL DISINTEGRATING TAB PO PRN (04:31)
[2021-07-09] MEDS: METRONIDAZOLE 500MG/NS 100ML 100 ML IV SCH (05:09)
[2021-07-09 06:52] LABS: BASOPHILS % 0.3 % (0.0-1.0); LYMPHOCYTES # (AUTO) 1.2 (1.0-3.2); LYMPHOCYTES % 30.5 % (18.0-39.1); MEAN CORPUSCULAR HEMOGLOBIN 34.2 pg (28-32); MEAN CORPUSCULAR HGB CONC 34.8 g/dL (31-35); MEAN CORPUSCULAR VOLUME 98.3 fL (81-99); MONOCYTES # (AUTO) 0.5 (0.2-0.8); MONOCYTES % 14.2 % (4.4-11.3); NEUTROPHILS # (AUTO) 2.1 (2.1-6.9); NEUTROPHILS % 54.2 % (38.7-80.0); RED BLOOD COUNT 2.34 x10e6/uL (3.6-5.1); RED CELL DISTRIBUTION WIDTH 16.6 % (11.7-14.4)
[2021-07-09 06:56] LABS: PLATELET COUNT 36 x10e3/uL (140-360)
[2021-07-09 07:16] LABS: ANION GAP 15.5 mmol/L (8-16); CALCIUM 8.4 mg/dL (8.4-10.2); CREATININE, SERUM 2.14 mg/dL (0.57-1.11); MAGNESIUM 1.3 MG/DL (1.3-2.1); PHOSPHORUS 3.2 MG/DL (2.3-4.7); POTASSIUM 3.5 mmol/L (3.5-5.1)
[2021-07-09] MEDS: INSULIN LISPRO 100 UNIT/1 ML 3ML VIAL SQ SCH ×4 (07:30→21:23)
[2021-07-09] MEDS: CALCIUM CARBONATE 500 MG CHEWABLE TABS PO SCH ×3 (09:07→20:00)
[2021-07-09] MEDS: FOLIC ACID 1 MG TAB PO SCH (09:07)
[2021-07-09] MEDS: CEFTRIAXONE 1 GM in SODIUM CHLORIDE 0.9% 50ML 50 ML IV SCH (09:07)
[2021-07-09] MEDS ORDERED: MEROPENEM 500 MG in SODIUM CHLORIDE 0.9% 50ML 50 ML IV SCH (09:15)
[2021-07-09] MEDS: EPOETIN ALFA-EPBX 10,000 UNIT/ML VIAL SC SCH (10:00)
[2021-07-09] MEDS ORDERED: DEXAMETHASONE SOD PHOS 10 MG/1 ML VIAL IV ONE (10:30)
[2021-07-09 10:59] LABS: PLATELET ESTIMATE MARKEDLY DECREASED; PLATELET MORPHOLOGY COMMENT NORMAL
[2021-07-09] MEDS: FLUCONAZOLE 100 MG/NS 50 ML 50 ML IV SCH (14:00)
[2021-07-09 16:50] LABS: HIV 1&2 AB SCREEN NON-REACTIVE (NONREACTIVE)
[2021-07-10] VITALS (8 sets, daily range): BP systolic 105–148; BP diastolic 61–93
[2021-07-10] MEDS: METOCLOPRAMIDE HCL 10 MG/2ML VIAL IV SCH ×6 (01:20→21:03)
[2021-07-10] MEDS ORDERED: SUCRALFATE 1 GM TAB PO ONE (02:30)
[2021-07-10 06:04] LABS: HEMATOCRIT 23.3 % (34.2-44.1); HEMOGLOBIN 8.3 g/dL (12.0-16.0); LYMPHOCYTES # (AUTO) 0.9 (1.0-3.2); LYMPHOCYTES % 31.6 % (18.0-39.1); MEAN CORPUSCULAR HEMOGLOBIN 33.9 pg (28-32); MEAN CORPUSCULAR HGB CONC 35.6 g/dL (31-35); MEAN CORPUSCULAR VOLUME 95.1 fL (81-99); MONOCYTES # (AUTO) 0.6 (0.2-0.8); MONOCYTES % 20.4 % (4.4-11.3); NEUTROPHILS # (AUTO) 1.2 (2.1-6.9); NEUTROPHILS % 46.1 % (38.7-80.0); RED BLOOD COUNT 2.45 x10e6/uL (3.6-5.1); RED CELL DISTRIBUTION WIDTH 18.9 % (11.7-14.4)
[2021-07-10 06:30] LABS: ALBUMIN 2.4 g/dL (3.5-5.0); ALBUMIN/GLOBULIN RATIO 0.6 (0.8-2.0); ANION GAP 16.4 mmol/L (8-16); CALCIUM 8.3 mg/dL (8.4-10.2); CREATININE, SERUM 2.01 mg/dL (0.57-1.11); MAGNESIUM 1.3 MG/DL (1.3-2.1); POTASSIUM 3.4 mmol/L (3.5-5.1)
[2021-07-10 06:40] LABS: PLATELET COUNT 38 x10e3/uL (140-360)
[2021-07-10] MEDS: INSULIN LISPRO 100 UNIT/1 ML 3ML VIAL SQ SCH ×4 (07:30→21:03)
[2021-07-10] MEDS: SUCRALFATE 1 GM TAB PO SCH ×4 (07:30→21:02)
[2021-07-10] MEDS: MEROPENEM 1 GM in SODIUM CHLORIDE 0.9% 100 ML IV SCH (09:00)
[2021-07-10] MEDS: CALCIUM CARBONATE 500 MG CHEWABLE TABS PO SCH ×3 (09:00→21:02)
[2021-07-10] MEDS: FOLIC ACID 1 MG TAB PO SCH (09:00)
[2021-07-10] MEDS ORDERED: DEXAMETHASONE SOD PHOS 10 MG/1 ML VIAL IV NR (10:00)
[2021-07-10] MEDS ORDERED: POTASSIUM CHLORIDE 20 MEQ TAB CR PO NR ×2 (10:30→14:02)
[2021-07-10] MEDS: FLUCONAZOLE 100 MG/NS 50 ML 50 ML IV SCH (14:00)
[2021-07-10] MEDS ORDERED: FUROSEMIDE INJ 10 MG/ML 4 ML VIAL IV ONE (14:15)
[2021-07-10] MEDS: HYDROCODONE/APAP 5MG-325MG TAB PO PRN (19:47)
[2021-07-11] VITALS (8 sets, daily range): BP systolic 115–143; BP diastolic 60–80
[2021-07-11] MEDS ORDERED: CHOLESTYRAMINE 4 GM PACKET PO ONE (00:30)
[2021-07-11] MEDS ORDERED: PHYTONADIONE 10 MG/ML AMP IV ONE (00:45)
[2021-07-11] MEDS ORDERED: PHYTONADIONE 10MG/ML 20 MG in SODIUM CHLORIDE 0.9% 50ML 50 ML IV ONE (01:00)
[2021-07-11] MEDS: METOCLOPRAMIDE HCL 10 MG/2ML VIAL IV SCH ×3 (05:06→21:02)
[2021-07-11 06:21] LABS: BASOPHILS % 0.3 % (0.0-1.0); HEMATOCRIT 23.6 % (34.2-44.1); HEMOGLOBIN 8.2 g/dL (12.0-16.0); LYMPHOCYTES # (AUTO) 0.8 (1.0-3.2); LYMPHOCYTES % 25.2 % (18.0-39.1); MEAN CORPUSCULAR HGB CONC 34.7 g/dL (31-35); MEAN CORPUSCULAR VOLUME 97.9 fL (81-99); MONOCYTES # (AUTO) 0.8 (0.2-0.8); MONOCYTES % 26.9 % (4.4-11.3); NEUTROPHILS # (AUTO) 1.3 (2.1-6.9); NEUTROPHILS % 41.6 % (38.7-80.0); PLATELET COUNT 64 x10e3/uL (140-360); RED BLOOD COUNT 2.41 x10e6/uL (3.6-5.1); RED CELL DISTRIBUTION WIDTH 20.1 % (11.7-14.4)
[2021-07-11 06:41] LABS: ANION GAP 17.2 mmol/L (8-16); CREATININE, SERUM 1.91 mg/dL (0.57-1.11); INR 1.37; POTASSIUM 3.2 mmol/L (3.5-5.1); PROTHROMBIN TIME 17.1 seconds (11.9-14.5)
[2021-07-11] MEDS: SUCRALFATE 1 GM TAB PO SCH ×4 (07:30→20:40)
[2021-07-11] MEDS: INSULIN LISPRO 100 UNIT/1 ML 3ML VIAL SQ SCH ×5 (07:30→20:39)
[2021-07-11] MEDS: FOLIC ACID 1 MG TAB PO SCH (09:00)
[2021-07-11] MEDS: MEROPENEM 1 GM in SODIUM CHLORIDE 0.9% 100 ML IV SCH (09:00)
[2021-07-11] MEDS: CALCIUM CARBONATE 500 MG CHEWABLE TABS PO SCH ×3 (09:00→20:43)
[2021-07-11] MEDS: CHOLESTYRAMINE 4 GM PACKET PO SCH (09:42)
[2021-07-11] MEDS ORDERED: POTASSIUM CHLORIDE 20 MEQ TAB CR PO NR (11:30)
[2021-07-11] MEDS ORDERED: FUROSEMIDE INJ 10 MG/ML 4 ML VIAL IV NR (11:30)
[2021-07-11] MEDS: FLUCONAZOLE 100 MG/NS 50 ML 50 ML IV SCH (13:53)
[2021-07-11 16:21] LABS: FREE T4 (FREE THYROXINE) 0.92 ng/dL (0.8-1.8); THYROID STIMULATING HORMONE 1.556 uIU/mL (0.350-4.940)
[2021-07-11] MEDS: FUROSEMIDE INJ 10 MG/ML 2 ML VIAL IV SCH (17:00)
[2021-07-11] MEDS ORDERED: INSULIN GLARGINE 100 UNITS/ML VIAL SQ SCH (21:00)
[2021-07-11] MEDS: HYDROCODONE/APAP 5MG-325MG TAB PO PRN (22:33)
[2021-07-12] VITALS: BP 124/65
[2021-07-12 04:39] LABS: BASOPHILS % 0.4 % (0.0-1.0); EOSINOPHILS % 0.4 % (0.0-6.0); HEMATOCRIT 23.8 % (34.2-44.1); HEMOGLOBIN 8.5 g/dL (12.0-16.0); LYMPHOCYTES # (AUTO) 1.5 (1.0-3.2); LYMPHOCYTES % 27.8 % (18.0-39.1); MEAN CORPUSCULAR HEMOGLOBIN 34.6 pg (28-32); MEAN CORPUSCULAR HGB CONC 35.7 g/dL (31-35); MEAN CORPUSCULAR VOLUME 96.7 fL (81-99); MONOCYTES # (AUTO) 1.9 (0.2-0.8); MONOCYTES % 35.5 % (4.4-11.3); NEUTROPHILS # (AUTO) 1.7 (2.1-6.9); NEUTROPHILS % 31.5 % (38.7-80.0); PLATELET COUNT 104 x10e3/uL (140-360); RED BLOOD COUNT 2.46 x10e6/uL (3.6-5.1)
[2021-07-12 04:53] LABS: CHOL/HDL RATIO 30.4 (3.0-3.6)
[2021-07-12 05:13] VITALS: BP 136/75
[2021-07-12] MEDS: METOCLOPRAMIDE HCL 10 MG/2ML VIAL IV SCH ×2 (05:31→13:19)
[2021-07-12 05:43] LABS: ANION GAP 15.5 mmol/L (8-16); CREATININE, SERUM 1.67 mg/dL (0.57-1.11); POTASSIUM 3.5 mmol/L (3.5-5.1)
[2021-07-12] MEDS: INSULIN LISPRO 100 UNIT/1 ML 3ML VIAL SQ SCH ×4 (07:30→12:35)
[2021-07-12] MEDS: SUCRALFATE 1 GM TAB PO SCH ×2 (07:30→12:36)
[2021-07-12 08:00] VITALS: BP 112/49
[2021-07-12 08:11] LABS: EOSINOPHILS % (MANUAL) 2 % (0-7); LYMPHOCYTES % (MANUAL) 26 % (19-48); METAMYELOCYTES % (MANUAL) 2 % (0-0); MONOCYTES % (MANUAL) 23 % (3.4-9.0); NEUTROPHILS % (MANUAL) 47 % (40-74); NUCLEATED RED BLOOD CELLS 3
[2021-07-12 08:16] LABS: ANISOCYTOSIS MODERATE; HYPOCHROMASIA SLIGHT; PLATELET MORPHOLOGY COMMENT NORMAL; RBC MORPHOLOGY COMMENT ABNORMAL
[2021-07-12] MEDS: FOLIC ACID 1 MG TAB PO SCH (09:00)
[2021-07-12] MEDS: MEROPENEM 1 GM in SODIUM CHLORIDE 0.9% 100 ML IV SCH (09:00)
[2021-07-12] MEDS: FUROSEMIDE INJ 10 MG/ML 2 ML VIAL IV SCH (09:00)
[2021-07-12] MEDS: CALCIUM CARBONATE 500 MG CHEWABLE TABS PO SCH ×2 (09:00→12:36)
[2021-07-12] MEDS: CHOLESTYRAMINE 4 GM PACKET PO SCH (09:40)
[2021-07-12] MEDS: EPOETIN ALFA-EPBX 10,000 UNIT/ML VIAL SC SCH (09:40)
[2021-07-12] MEDS ORDERED: FENTANYL CITRATE/PF 100MCG/2 ML INJ ONE (09:43)
[2021-07-12] MEDS ORDERED: MIDAZOLAM HCL 2 MG/2 ML VIAL ONE (09:43)
[2021-07-12 10:57] LABS: PLATELET ESTIMATE SLIGHTLY DECREASED
[2021-07-12 12:01] VITALS: BP 114/67
[2021-07-12] MEDS: FLUCONAZOLE 100 MG/NS 50 ML 50 ML IV SCH (13:18)
[2021-07-12] MEDS ORDERED: PANTOPRAZOLE SO40 MG PO (16:00)
[2021-07-12] MEDS ORDERED: PREDNISONE20 MG PO ×2 (16:01→16:15)
[2021-07-12 16:04] VITALS: BP 126/57
[2021-07-12] MEDS ORDERED: NOVOLIN N100 UNIT/1 SUBD ×2 (16:06→16:07)
[2021-07-12] MEDS ORDERED: DIFLUCAN100 MG PO (16:08)
[2021-07-12] MEDS ORDERED: INSULIN LISPRO 100 UNIT/1 ML 3ML VIAL SQ SCH (16:30)
== END 2021-07-12 17:03 | disposition home health service (06) | DRG 643 ==
LOC: FSED 19:39 → ERHOLD 22:56 → IMCU 07-01 03:07 → ICU 07-03 17:32 → MED/SURG3 07-06 15:49
PROVIDERS: ADMIT Internal Medicine; ATTEND Internal Medicine
PROC: 02HV33Z Insertion of Infusion Device into Superior Vena Cava, Percutaneous Approach (ICD-10-PCS; principal; 2021-07-01)
PROC: B548ZZA Ultrasonography of Superior Vena Cava, Guidance (ICD-10-PCS; 2021-07-01)
PROC: 30233N1 Transfusion of Nonautologous Red Blood Cells into Peripheral Vein, Percutaneous Approach (ICD-10-PCS; 2021-07-03)
PROC: 30233R1 Transfusion of Nonautologous Platelets into Peripheral Vein, Percutaneous Approach (ICD-10-PCS; 2021-07-07)
PROC: 07DR3ZX Extraction of Iliac Bone Marrow, Percutaneous Approach, Diagnostic (ICD-10-PCS; 2021-07-12)
DX: E22.2 Syndrome of inappropriate secretion of antidiuretic hormone (principal); I50.33 Acute on chronic diastolic (congestive) heart failure; N17.0 Acute kidney failure with tubular necrosis; J81.1 Chronic pulmonary edema; I13.0 Hypertensive heart and chronic kidney disease with heart failure and stage 1 through stage 4 chronic kidney disease, or unspecified chronic kidney disease; B37.49 Other urogenital candidiasis; N30.00 Acute cystitis without hematuria; Z16.12 Extended spectrum beta lactamase (ESBL) resistance; Z68.43 Body mass index [BMI] 50.0-59.9, adult; D61.818 Other pancytopenia; N18.4 Chronic kidney disease, stage 4 (severe); I95.9 Hypotension, unspecified; E87.6 Hypokalemia; E11.22 Type 2 diabetes mellitus with diabetic chronic kidney disease; D63.1 Anemia in chronic kidney disease; K21.9 Gastro-esophageal reflux disease without esophagitis; E78.5 Hyperlipidemia, unspecified; Z88.0 Allergy status to penicillin; E66.01 Morbid (severe) obesity due to excess calories; E86.0 Dehydration; Z90.49 Acquired absence of other specified parts of digestive tract; E83.42 Hypomagnesemia; E83.51 Hypocalcemia; Z91.19 Patient's noncompliance with other medical treatment and regimen; K52.9 Noninfective gastroenteritis and colitis, unspecified; R06.03 Acute respiratory distress; D69.6 Thrombocytopenia, unspecified; K76.0 Fatty (change of) liver, not elsewhere classified; G47.33 Obstructive sleep apnea (adult) (pediatric); B96.20 Unspecified Escherichia coli [E. coli] as the cause of diseases classified elsewhere
CPT/HCPCS: 36415; 36556; 38222; 71045; 74176; 74470; 76705; 76937; 77001; 77012; 78580; 80048; 80053; 80061; 81001; 81161; 81220; 82270; 82570; 82607; 82728; 82746; 82947; 82948; 83036; 83540; 83690; 83735; 83880; 83930; 83935; 84100; 84295; 84300; 84439; 84443; 84466; 84484; 85025; 85045; 85379; 85384; 85610; 85730; 86022; 86039; 86850; 86900; 86920; 87045; 87086; 87186; 87390; 87493; 93306; 94660; 96372; 97139; 99251; 99284; A9540; G0433; G0435; J0610; J0696; J1100; J1450; J1815; J1940; J2001; J2185; J2250; J2405; J2765; J3010; J3430; J3475; J7030; J7040; J7050; P9016; P9034; P9047; Q0162; U0002

== ENCOUNTER → 2021-08-18 | Outpatient (CLI) | payer MEDICARE, OTHER ==
[~2021-08-18] MED LIST changes: +ATENOLOL-CHLOR1 EACH PO; +DICYCLOMINE HCL20 MG PO; +DIFLUCAN100 MG PO; +NOVOLIN N100 UNIT/1 SUBD; +PANTOPRAZOLE SO40 MG PO; +PHENERGAN SUPP25 MG RC; +PREDNISONE20 MG PO
== END ==
LOC: US 07:33
PROVIDERS: ATTEND Internal Medicine Medical Oncology
DX: R94.5 Abnormal results of liver function studies (principal)
CPT/HCPCS: 76700

== ENCOUNTER 2022-06-09 16:55 | Observation (INO) | payer MEDICARE, OTHER ==
[~2022-06-09] VITALS: Ht 152.4 cm; Wt 79.8 kg
[2022-06-09] MEDS ORDERED: Morphine 2mg Syringe 2 MG/ML SYR IV STA (18:10)
[2022-06-09] MEDS ORDERED: ONDANSETRON HCL INJ 2MG/ML 2ML 2 MG/ML VIAL IV STA (18:10)
[2022-06-09 19:04] LABS: BASOPHILS % 0.4 % (0.0-1.0); EOSINOPHILS # (AUTO) 0.1 (0.0-0.4); EOSINOPHILS % 1.3 % (0.0-6.0); HEMATOCRIT 27.5 % (34.2-44.1); HEMOGLOBIN 9.2 g/dL (12.0-16.0); LYMPHOCYTES % 42.4 % (18.0-39.1); MEAN CORPUSCULAR HGB CONC 33.5 g/dL (31-35); MEAN CORPUSCULAR VOLUME 98.6 fL (81-99); MONOCYTES # (AUTO) 0.7 (0.2-0.8); MONOCYTES % 15.7 % (4.4-11.3); NEUTROPHILS # (AUTO) 1.8 (2.1-6.9); PLATELET COUNT 101 x10e3/uL (140-360); RED BLOOD COUNT 2.79 x10e6/uL (3.6-5.1); RED CELL DISTRIBUTION WIDTH 17.8 % (11.7-14.4)
[2022-06-09] MEDS ORDERED: SODIUM CHLORIDE FLUSH 10 ML SYR INJ PRN (19:15)
[2022-06-09] MEDS ORDERED: ONDANSETRON HCL INJ 2MG/ML 2ML 2 MG/ML VIAL IV PRN (19:15)
[2022-06-09] MEDS ORDERED: Morphine 4mg INJECTION 4 MG/ML INJ IV PRN (19:15)
[2022-06-09 19:24] LABS: INR 1.05; PROTHROMBIN TIME 14.7 seconds (11.9-14.5)
[2022-06-09 19:25] LABS: PARTIAL THROMBOPLASTIN TIME 29.3 seconds (23.8-35.5)
[2022-06-09 19:28] LABS: ALANINE AMINOTRANSFERASE 21 IU/L (0-55); ALBUMIN 2.4 g/dL (3.5-5.0); ALBUMIN/GLOBULIN RATIO 0.6 (0.8-2.0); ALKALINE PHOSPHATASE 174 IU/L (40-150); ANION GAP 16.1 mmol/L (8-16); BLOOD UREA NITROGEN 20 mg/dL (7-26); BUN/CREATININE RATIO 10 (6-25); CARBON DIOXIDE 27 mmol/L (22-29); CHLORIDE 101 mmol/L (98-107); CREATINE KINASE 33 IU/L (29-168); CREATININE, SERUM 2.04 mg/dL (0.57-1.11); GLUCOSE 73 mg/dL (74-118); LIPASE 18 U/L (8-78); POTASSIUM 4.1 mmol/L (3.5-5.1); SODIUM 140 mmol/L (136-145)
[2022-06-09 20:46] LABS: CLARITY,URINE SL CLOUDY (CLEAR); COLOR,URINE STRAW (YELLOW); KETONES,URINE 1+ (NEGATIVE); LEUKOCYTE ESTERASE ,URINE MODERATE (NEGATIVE); NITRITE,URINE NEGATIVE (NEGATIVE); PROTEIN,URINE DIPSTICK TRACE (NEGATIVE); URINE UROBILINOGEN 1 mg/dL (0.2 - 1)
[2022-06-09 20:58] LABS: BACTERIA,URINE MANY /HPF; EPITHELIAL CELLS,URINE MODERATE /LPF; RBC,URINE 0-5 /HPF (0-5)
[2022-06-09] MEDS ORDERED: SODIUM CHLORIDE 0.9% 1000ML 1,000 ML IV STA (23:27)
[2022-06-10] VITALS (7 sets, daily range): BP systolic 84–113; BP diastolic 46–67
[2022-06-10 00:41] LABS: % IRON SATURATION 45 % (15-50); IRON 67 ug/dL (50-170); TOTAL IRON BINDING CAPACITY 148 ug/dL (261-478); TRANSFERRIN 106 mg/dL (180-382)
[2022-06-10] MEDS: SODIUM CHLORIDE 0.9% 1000ML 1,000 ML IV SCH ×3 (00:51→16:30)
[2022-06-10 08:21] LABS: BASOPHILS % 0.8 % (0.0-1.0); EOSINOPHILS # (AUTO) 0.1 (0.0-0.4); EOSINOPHILS % 3.7 % (0.0-6.0); HEMATOCRIT 23.7 % (34.2-44.1); LYMPHOCYTES # (AUTO) 1.5 (1.0-3.2); LYMPHOCYTES % 43.1 % (18.0-39.1); MEAN CORPUSCULAR HEMOGLOBIN 33.6 pg (28-32); MEAN CORPUSCULAR HGB CONC 33.8 g/dL (31-35); MEAN CORPUSCULAR VOLUME 99.6 fL (81-99); MONOCYTES # (AUTO) 0.6 (0.2-0.8); MONOCYTES % 18.1 % (4.4-11.3); NEUTROPHILS # (AUTO) 1.2 (2.1-6.9); PLATELET COUNT 76 x10e3/uL (140-360); RED BLOOD COUNT 2.38 x10e6/uL (3.6-5.1); RED CELL DISTRIBUTION WIDTH 18.3 % (11.7-14.4)
[2022-06-10 08:36] LABS: ALBUMIN 1.9 g/dL (3.5-5.0); ALBUMIN/GLOBULIN RATIO 0.6 (0.8-2.0); ANION GAP 11.9 mmol/L (8-16); CALCIUM 7.5 mg/dL (8.4-10.2); CREATININE, SERUM 1.8 mg/dL (0.57-1.11); POTASSIUM 3.9 mmol/L (3.5-5.1)
[2022-06-10 08:43] LABS: CREATINE KINASE MB 0.4 ng/mL (0-5.0)
[2022-06-10] MEDS ORDERED: ALBUMIN 25% 12.5GM 50ML 0 ML IV ONE (11:05)
[2022-06-10 12:59] LABS: BODY FLUID COLOR YELLOW; BODY FLUID TYPE PERITONEAL
[2022-06-10 13:00] LABS: BODY FLUID APPEARANCE CLOUDY; RBC,BODY FLUID 0 cells/uL; WBC,BODY FLUID 100 cells/uL
[2022-06-10 13:23] LABS: LYMPHOCYTES,BODY FLUID 66 %; MONO/MACROPHG,BODY FLUID 19 %; NEUTROPHILS,BODY FLUID 9 %; OTHER CELLS,BODY FLUID 6 %
[2022-06-10 16:39] LABS: CREATINE KINASE MB 0.4 ng/mL (0-5.0)
[2022-06-10] MEDS ORDERED: Morphine 2mg Syringe 2 MG/ML SYR IV PRN (16:45)
[2022-06-10] MEDS ORDERED: HYDROCODONE/APAP 5MG-325MG TAB PO ONE (17:00)
[2022-06-11 00:12] VITALS: BP 104/48
[2022-06-11] MEDS: SODIUM CHLORIDE 0.9% 1000ML 1,000 ML IV SCH ×2 (01:03→09:25)
[2022-06-11] MEDS ORDERED: DONNATAL/LIDOCAINE/MAALOX 30 ML SUSP PO ONE (02:15)
[2022-06-11] MEDS ORDERED: MAGNESIUM/ALUMINUM/SIMETHICONE 30 ML UDC PO ONE (02:30)
[2022-06-11] MEDS ORDERED: BELLADONNA ALK/PHENOBARBITAL 5 ML UDC PO ONE (02:30)
[2022-06-11] MEDS ORDERED: LIDOCAINE VISC 2% SOLN 15 ML UDC PO ONE (02:30)
[2022-06-11 03:59] VITALS: BP 99/55
[2022-06-11 06:41] LABS: ALBUMIN 1.7 g/dL (3.5-5.0); ALBUMIN/GLOBULIN RATIO 0.6 (0.8-2.0); ANION GAP 11.9 mmol/L (8-16); CALCIUM 7.2 mg/dL (8.4-10.2); CREATININE, SERUM 1.62 mg/dL (0.57-1.11); POTASSIUM 3.9 mmol/L (3.5-5.1)
[2022-06-11 08:00] VITALS: BP 108/47
[2022-06-11] MEDS ORDERED: SIMETHICONE 40 MG/0.6 ML BTL ONE (08:22)
[2022-06-11] MEDS ORDERED: MIDAZOLAM HCL 2 MG/2 ML VIAL ONE (08:45)
[2022-06-11] MEDS ORDERED: FENTANYL CITRATE/PF 100MCG/2 ML INJ ONE (08:46)
[2022-06-11 09:09] LABS: BASOPHILS % 0.9 % (0.0-1.0); EOSINOPHILS # (AUTO) 0.1 (0.0-0.4); EOSINOPHILS % 3.4 % (0.0-6.0); HEMATOCRIT 24.8 % (34.2-44.1); HEMOGLOBIN 8.2 g/dL (12.0-16.0); LYMPHOCYTES # (AUTO) 1.3 (1.0-3.2); LYMPHOCYTES % 41.3 % (18.0-39.1); MEAN CORPUSCULAR HEMOGLOBIN 33.3 pg (28-32); MEAN CORPUSCULAR HGB CONC 33.1 g/dL (31-35); MEAN CORPUSCULAR VOLUME 100.8 fL (81-99); MONOCYTES # (AUTO) 0.6 (0.2-0.8); MONOCYTES % 17.5 % (4.4-11.3); NEUTROPHILS # (AUTO) 1.2 (2.1-6.9); NEUTROPHILS % 36.9 % (38.7-80.0); PLATELET COUNT 83 x10e3/uL (140-360); RED BLOOD COUNT 2.46 x10e6/uL (3.6-5.1); RED CELL DISTRIBUTION WIDTH 18.3 % (11.7-14.4)
[2022-06-11] MEDS: METOCLOPRAMIDE HCL 10 MG/2ML VIAL IV SCH ×2 (10:41→16:30)
[2022-06-11 11:08] VITALS: BP 107/55
[2022-06-11 15:44] VITALS: BP 93/55
[2022-06-11] MEDS ORDERED: ONDANSETRON ODT4 MG PO (17:06)
[2022-06-11] MEDS ORDERED: PANTOPRAZOLE SO40 MG PO (17:06)
== END 2022-06-11 17:25 | disposition home or self-care (01) ==
LOC: ER 17:15 → ERHOLD 19:12 → MED/SURG 06-10 00:42
PROVIDERS: ADMIT Internal Medicine; ATTEND Internal Medicine
DX: R18.8 Other ascites (principal); K74.60 Unspecified cirrhosis of liver; K20.90 Esophagitis, unspecified without bleeding; R13.10 Dysphagia, unspecified; N17.9 Acute kidney failure, unspecified; D61.818 Other pancytopenia; E66.9 Obesity, unspecified; E11.9 Type 2 diabetes mellitus without complications; M06.9 Rheumatoid arthritis, unspecified; I10 Essential (primary) hypertension; K21.9 Gastro-esophageal reflux disease without esophagitis; E78.5 Hyperlipidemia, unspecified; D64.9 Anemia, unspecified; Z68.34 Body mass index [BMI] 34.0-34.9, adult; Z88.0 Allergy status to penicillin; Z96.652 Presence of left artificial knee joint; Z98.84 Bariatric surgery status; Z20.822 Contact with and (suspected) exposure to COVID-19
CPT/HCPCS: 0223U; 36415 ×3; 43239; 43450; 49083 ×2; 71045; 74176; 74470; 80053 ×3; 81001; 82040; 82550 ×2; 82553 ×2; 82607; 82746; 83540; 83690; 83880; 84157; 84466; 84484 ×2; 85025 ×3; 85045; 85610; 85730; 86039; 87070; 87086; 87186; 87205; 88304; 89051; 93005; 99284; C9113; G0378 ×3; J0696; J2250; J2270; J2405; J2765; J3010; J3411; J7030 ×2; 88342

== ENCOUNTER 2022-06-29 09:22 | Emergency (ER) | payer MEDICARE, OTHER ==
[~2022-06-29] VITALS: Ht 302.3 cm; Wt 79.8 kg
[2022-06-29] MEDS ORDERED: FENTANYL CITRATE/PF 100MCG/2 ML INJ IV PRN (10:00)
== END 2022-06-29 10:08 | disposition left against medical advice (07) ==
LOC: ER 09:42
DX: R10.11 Right upper quadrant pain (principal); K74.60 Unspecified cirrhosis of liver; R18.8 Other ascites; N20.0 Calculus of kidney

== ENCOUNTER → 2022-06-29 | Outpatient (CLI) | payer MEDICARE, OTHER | LOC: US 10:26 | PROVIDERS: ATTEND Internal Medicine Gastroenterology | DX: K66.0 Peritoneal adhesions (postprocedural) (postinfection) (principal) | CPT/HCPCS: 76705 ==

== ENCOUNTER → 2022-07-07 | Outpatient (CLI) | payer MEDICARE, OTHER ==
[~2022-07-07] MED LIST changes: +ALBUMIN 25% 12.5GM 50ML 200 ML IV ONE
== END ==
LOC: US 09:20
PROVIDERS: ATTEND Internal Medicine Gastroenterology
DX: K72.90 Hepatic failure, unspecified without coma (principal)
CPT/HCPCS: 49083; C1729

== ENCOUNTER 2022-08-01 07:35 | Inpatient (IN) | payer MEDICARE, OTHER ==
[~2022-08-01] VITALS: Ht 162.6 cm; Wt 63.5 kg
[~2022-08-01 07:35] MED LIST changes: -ALBUMIN 25% 12.5GM 50ML 200 ML IV ONE
[2022-08-01] MEDS ORDERED: ONDANSETRON HCL INJ 2MG/ML 2ML 2 MG/ML VIAL IV STA (07:50)
[2022-08-01] MEDS ORDERED: SODIUM CHLORIDE 0.9% 1000ML 1,000 ML IV ONE (08:00)
[2022-08-01] MEDS ORDERED: FENTANYL CITRATE/PF 100MCG/2 ML INJ IV ONE (08:00)
[2022-08-01 08:02] LABS: BASOPHILS % 0.9 % (0.0-1.0); EOSINOPHILS # (AUTO) 0.1 (0.0-0.4); EOSINOPHILS % 1.8 % (0.0-6.0); HEMATOCRIT 26.8 % (34.2-44.1); HEMOGLOBIN 8.7 g/dL (12.0-16.0); LYMPHOCYTES % 66.2 % (18.0-39.1); MEAN CORPUSCULAR HGB CONC 32.5 g/dL (31-35); MEAN CORPUSCULAR VOLUME 101.5 fL (81-99); MONOCYTES # (AUTO) 0.5 (0.2-0.8); MONOCYTES % 10.5 % (4.4-11.3); NEUTROPHILS # (AUTO) 0.9 (2.1-6.9); NEUTROPHILS % 20.4 % (38.7-80.0); PLATELET COUNT 116 x10e3/uL (140-360); RED BLOOD COUNT 2.64 x10e6/uL (3.6-5.1); RED CELL DISTRIBUTION WIDTH 15.3 % (11.7-14.4)
[2022-08-01 08:26] LABS: ANION GAP 15.5 mmol/L (8-16); CREATININE, SERUM 3.13 mg/dL (0.57-1.11); POTASSIUM 3.5 mmol/L (3.5-5.1)
[2022-08-01 08:27] LABS: ALBUMIN 2.4 g/dL (3.5-5.0); ALBUMIN/GLOBULIN RATIO 0.6 (0.8-2.0)
[2022-08-01 08:28] LABS: CLARITY,URINE TURBID (CLEAR); COLOR,URINE YELLOW (YELLOW); LEUKOCYTE ESTERASE ,URINE MODERATE (NEGATIVE)
[2022-08-01 08:29] LABS: KETONES,URINE NEGATIVE (NEGATIVE); NITRITE,URINE POSITIVE (NEGATIVE); PROTEIN,URINE DIPSTICK NEGATIVE (NEGATIVE); URINE UROBILINOGEN 0.2 mg/dL (0.2 - 1)
[2022-08-01 08:34] LABS: BACTERIA,URINE MODERATE /HPF; EPITHELIAL CELLS,URINE FEW /LPF; WBC,URINE (MAN) >50 /HPF (0-5)
[2022-08-01] MEDS ORDERED: CEFTRIAXONE 1 GM VIAL IV ONE (10:15)
[2022-08-01] MEDS ORDERED: ALBUMIN 25% 25GM 100ML 0.25 GM/ML BTL IV ONE (10:15)
[2022-08-01] MEDS ORDERED: ONDANSETRON HCL INJ 2MG/ML 2ML 2 MG/ML VIAL IV PRN (11:00)
[2022-08-01] MEDS: SODIUM CHLORIDE 0.9% 1000ML 1,000 ML IV SCH ×2 (11:11→21:26)
[2022-08-01 12:25] LABS: EOSINOPHILS % (MANUAL) 4 % (0-7); LYMPHOCYTES % (MANUAL) 61 % (19-48); MONOCYTES % (MANUAL) 12 % (3.4-9.0); NEUTROPHILS % (MANUAL) 23 % (40-74); PLATELET ESTIMATE SLIGHTLY DECREASED; PLATELET MORPHOLOGY COMMENT NORMAL; RBC MORPHOLOGY COMMENT NORMAL
[2022-08-01 15:10] VITALS: BP 110/62
[2022-08-01 16:19] VITALS: BP 101/58
[2022-08-01] MEDS ORDERED: TRAMADOL HCL 50 MG TAB PO PRN (17:00)
[2022-08-01] MEDS ORDERED: ACETAMINOPHEN 325 MG TAB PO PRN (17:00)
[2022-08-01] MEDS ORDERED: HYDRALAZINE HCL 20 MG/ML VIAL IV PRN (17:00)
[2022-08-01 20:00] VITALS: BP 102/56
[2022-08-01 21:00] VITALS: BP 102/56
[2022-08-02 01:52] VITALS: BP 113/61
[2022-08-02 05:45] VITALS: BP 111/67
[2022-08-02 06:44] LABS: BASOPHILS % 1.5 % (0.0-1.0); EOSINOPHILS # (AUTO) 0.1 (0.0-0.4); EOSINOPHILS % 2.2 % (0.0-6.0); HEMATOCRIT 22.5 % (34.2-44.1); HEMOGLOBIN 7.4 g/dL (12.0-16.0); LYMPHOCYTES # (AUTO) 1.5 (1.0-3.2); LYMPHOCYTES % 54.8 % (18.0-39.1); MEAN CORPUSCULAR HEMOGLOBIN 33.5 pg (28-32); MEAN CORPUSCULAR HGB CONC 32.9 g/dL (31-35); MEAN CORPUSCULAR VOLUME 101.8 fL (81-99); MONOCYTES # (AUTO) 0.4 (0.2-0.8); MONOCYTES % 13.2 % (4.4-11.3); NEUTROPHILS # (AUTO) 0.8 (2.1-6.9); NEUTROPHILS % 28.3 % (38.7-80.0); PLATELET COUNT 84 x10e3/uL (140-360); RED BLOOD COUNT 2.21 x10e6/uL (3.6-5.1); RED CELL DISTRIBUTION WIDTH 15.6 % (11.7-14.4)
[2022-08-02 07:18] LABS: ALBUMIN 2.2 g/dL (3.5-5.0); ALBUMIN/GLOBULIN RATIO 0.8 (0.8-2.0); ANION GAP 12.5 mmol/L (8-16); CALCIUM 7.5 mg/dL (8.4-10.2); CREATININE, SERUM 2.44 mg/dL (0.57-1.11); POTASSIUM 3.5 mmol/L (3.5-5.1)
[2022-08-02] MEDS: SODIUM CHLORIDE 0.9% 1000ML 1,000 ML IV SCH (07:26)
[2022-08-02] MEDS ORDERED: FAMOTIDINE 20 MG TAB PO SCH (07:30)
[2022-08-02] MEDS ORDERED: Morphine 2mg Syringe 2 MG/ML SYR IV PRN (08:45)
[2022-08-02 08:57] VITALS: BP 94/57
[2022-08-02 09:26] LABS: INR 1.23; PROTHROMBIN TIME 16.6 seconds (11.9-14.5)
[2022-08-02] MEDS: EPOETIN ALFA-EPBX 10,000 UNIT/ML VIAL SC SCH (10:00)
[2022-08-02] MEDS: SODIUM FERRIC GLUCONATE COMPLX 125 MG in SODIUM CHLORIDE 0.9% 100 ML IV SCH (12:00)
[2022-08-02 12:42] VITALS: BP 101/64
[2022-08-02 16:48] VITALS: BP 133/64
[2022-08-02 21:00] VITALS: BP 109/66
[2022-08-03] VITALS (9 sets, daily range): BP systolic 84–121; BP diastolic 52–80
[2022-08-03 06:14] LABS: BASOPHILS % 0.6 % (0.0-1.0); EOSINOPHILS # (AUTO) 0.1 (0.0-0.4); EOSINOPHILS % 1.7 % (0.0-6.0); HEMATOCRIT 25.4 % (34.2-44.1); HEMOGLOBIN 8.2 g/dL (12.0-16.0); LYMPHOCYTES # (AUTO) 1.9 (1.0-3.2); LYMPHOCYTES % 53.2 % (18.0-39.1); MEAN CORPUSCULAR HEMOGLOBIN 33.2 pg (28-32); MEAN CORPUSCULAR HGB CONC 32.3 g/dL (31-35); MEAN CORPUSCULAR VOLUME 102.8 fL (81-99); MONOCYTES # (AUTO) 0.4 (0.2-0.8); MONOCYTES % 10.7 % (4.4-11.3); NEUTROPHILS # (AUTO) 1.2 (2.1-6.9); NEUTROPHILS % 33.5 % (38.7-80.0); PLATELET COUNT 90 x10e3/uL (140-360); RED BLOOD COUNT 2.47 x10e6/uL (3.6-5.1); RED CELL DISTRIBUTION WIDTH 15.4 % (11.7-14.4)
[2022-08-03] MEDS: PANTOPRAZOLE SOD 40 MG TABEC PO SCH ×3 (06:31→09:29)
[2022-08-03 06:53] LABS: ANION GAP 11.3 mmol/L (8-16); CALCIUM 7.7 mg/dL (8.4-10.2); CREATININE, SERUM 2.29 mg/dL (0.57-1.11); MAGNESIUM 1.8 MG/DL (1.3-2.1); POTASSIUM 3.3 mmol/L (3.5-5.1)
[2022-08-03] MEDS: SODIUM FERRIC GLUCONATE COMPLX 125 MG in SODIUM CHLORIDE 0.9% 100 ML IV SCH (12:29)
[2022-08-04] VITALS: BP 98/54
[2022-08-04 04:00] VITALS: BP 104/60
[2022-08-04 06:15] LABS: BASOPHILS % 0.7 % (0.0-1.0); EOSINOPHILS # (AUTO) 0.1 (0.0-0.4); EOSINOPHILS % 2.3 % (0.0-6.0); HEMOGLOBIN 7.6 g/dL (12.0-16.0); LYMPHOCYTES # (AUTO) 1.7 (1.0-3.2); LYMPHOCYTES % 54.6 % (18.0-39.1); MEAN CORPUSCULAR HEMOGLOBIN 32.9 pg (28-32); MEAN CORPUSCULAR HGB CONC 31.7 g/dL (31-35); MEAN CORPUSCULAR VOLUME 103.9 fL (81-99); MONOCYTES # (AUTO) 0.4 (0.2-0.8); MONOCYTES % 11.9 % (4.4-11.3); NEUTROPHILS # (AUTO) 0.9 (2.1-6.9); NEUTROPHILS % 30.5 % (38.7-80.0); PLATELET COUNT 70 x10e3/uL (140-360); RED BLOOD COUNT 2.31 x10e6/uL (3.6-5.1); RED CELL DISTRIBUTION WIDTH 15.5 % (11.7-14.4)
[2022-08-04 06:56] LABS: ANION GAP 10.5 mmol/L (8-16); CALCIUM 7.6 mg/dL (8.4-10.2); CREATININE, SERUM 2.15 mg/dL (0.57-1.11); POTASSIUM 3.5 mmol/L (3.5-5.1)
[2022-08-04 08:17] VITALS: BP 99/59
[2022-08-04] MEDS ORDERED: SODIUM CHLORIDE 0.9% 250ML 250 ML ONE (08:17)
[2022-08-04 08:23] VITALS: BP 99/59
[2022-08-04] MEDS: ONDANSETRON HCL 4 MG ORAL DISINTEGRATING TAB PO SCH ×3 (09:07→16:50)
[2022-08-04] MEDS: SODIUM FERRIC GLUCONATE COMPLX 125 MG in SODIUM CHLORIDE 0.9% 100 ML IV SCH (09:58)
[2022-08-04] MEDS: EPOETIN ALFA-EPBX 10,000 UNIT/ML VIAL SC SCH (09:58)
[2022-08-04 13:06] VITALS: BP 102/58
[2022-08-04 15:41] LABS: ALPHA-1-ANTITRYPSIN 87 mg/dL (101-187)
[2022-08-04 16:17] VITALS: BP 105/55
[2022-08-04] MEDS ORDERED: FERROUS SULFAT324 MG PO (18:19)
[2022-08-04] MEDS ORDERED: CEPHALEXIN250 MG PO (18:19)
[2022-08-04] MEDS ORDERED: PROTONIX20 MG PO (18:19)
[2022-08-05] MEDS ORDERED: PANTOPRAZOLE SOD 40 MG TABEC PO SCH (07:30)
== END 2022-08-04 19:43 | disposition home or self-care (01) | DRG 433 ==
LOC: ER 07:40 → ERHOLD 10:49 → MED/SURG3 14:43 → OBSVTOIN 08-02 16:25
PROVIDERS: ADMIT Internal Medicine; ATTEND Internal Medicine
PROC: 0W9G3ZZ Drainage of Peritoneal Cavity, Percutaneous Approach (ICD-10-PCS; principal; 2022-08-02)
PROC: 3E03329 Introduction of Other Anti-infective into Peripheral Vein, Percutaneous Approach (ICD-10-PCS; 2022-08-02)
DX: K74.60 Unspecified cirrhosis of liver (principal); D61.818 Other pancytopenia; N17.9 Acute kidney failure, unspecified; N39.0 Urinary tract infection, site not specified; K91.2 Postsurgical malabsorption, not elsewhere classified; K76.6 Portal hypertension; R18.8 Other ascites; Z98.84 Bariatric surgery status; B96.20 Unspecified Escherichia coli [E. coli] as the cause of diseases classified elsewhere; N18.30 Chronic kidney disease, stage 3 unspecified; K75.81 Nonalcoholic steatohepatitis (NASH); E11.69 Type 2 diabetes mellitus with other specified complication; Z88.0 Allergy status to penicillin; D63.8 Anemia in other chronic diseases classified elsewhere; I12.9 Hypertensive chronic kidney disease with stage 1 through stage 4 chronic kidney disease, or unspecified chronic kidney disease; E11.22 Type 2 diabetes mellitus with diabetic chronic kidney disease; E87.6 Hypokalemia; K21.9 Gastro-esophageal reflux disease without esophagitis; D50.9 Iron deficiency anemia, unspecified; M19.90 Unspecified osteoarthritis, unspecified site; Z79.4 Long term (current) use of insulin; Y83.8 Other surgical procedures as the cause of abnormal reaction of the patient, or of later complication, without mention of misadventure at the time of the procedure
CPT/HCPCS: 0223U; 36415; 49083; 74176; 74470; 80048; 80053; 81001; 81161; 81220; 82103; 82105; 82390; 82728; 83605; 83690; 83735; 85025; 85610; 86039; 86255; 87086; 87186; 93005; 96360; 99284; C1729; G0378; J0696; J2270; J2405; J2916; J3010; J7030; J7050; P9047; Q0162